=== PATIENT | female | born 1990 | race Caucasian/White ===

== ENCOUNTER 2016-10-21 | Outpatient (CLI) | payer MEDICAID | END 2016-10-21 01:27 | disposition critical access hospital (66) | CPT/HCPCS: A0425; A0429 ==

== ENCOUNTER 2016-10-21 01:57 | Emergency (ER) | payer MEDICAID | END 2016-10-21 02:30 | disposition left against medical advice (07) | DX: Z53.21 Procedure and treatment not carried out due to patient leaving prior to being seen by health care provider (principal) ==

== ENCOUNTER 2016-10-21 03:15 | Emergency (ER) | payer MEDICAID | END 2016-10-21 07:05 | disposition home or self-care (01) | DX: F33.1 Major depressive disorder, recurrent, moderate (principal); F43.10 Post-traumatic stress disorder, unspecified ==

== ENCOUNTER 2016-10-23 21:09 | Emergency (ER) | payer MEDICAID ==
[2016-10-23] MEDS ORDERED: CLINDAMYCIN 150 MG CAPSULE PO STA (21:24)
[2016-10-23] MEDS ORDERED: HYDROcod/ACETAM 5/325 MG TABLET PO STA (21:24)
[2016-10-23] MEDS ORDERED: CLINDAMYCIN 150 MG CAPSULE PO ONE (21:28)
[2016-10-23] MEDS ORDERED: HYDROcod/ACETAM 5/325 MG TABLET ONE (21:28)
== END 2016-10-23 21:34 | disposition home or self-care (01) ==
DX: K08.89 Other specified disorders of teeth and supporting structures (principal)
CPT/HCPCS: 99283; A9270

== ENCOUNTER 2016-10-30 | Outpatient (CLI) | payer MEDICAID | END 2016-10-30 22:52 | disposition critical access hospital (66) | DX: R45.851 Suicidal ideations (principal) | CPT/HCPCS: A0425; A0429 ==

== ENCOUNTER 2016-10-30 22:56 | Emergency (ER) | payer MEDICAID | END 2016-10-31 03:05 | disposition home or self-care (01) | DX: F32.9 Major depressive disorder, single episode, unspecified (principal); R45.87 Impulsiveness; R45.1 Restlessness and agitation ==

== ENCOUNTER 2018-04-01 12:23 | Outpatient (CLI) | payer MEDICAID ==
[2018-04-01 13:23] LABS: BILIRUBIN,URINE NEGATIVE (NEGATIVE); GLUCOSE, URINE (UA) NEGATIVE (NEGATIVE); KETONES,URINE (UA) NEGATIVE (NEGATIVE); LEUKOCYTE ESTERASE, URINE SMALL (NEGATIVE); NITRITE,URINE NEGATIVE (NEGATIVE); OCCULT BLOOD,URINE NEGATIVE (NEGATIVE); PH,URINE 7.5 PH (5.0-7.5); PROTEIN,URINE NEGATIVE (NEGATIVE); UROBILINOGEN,URINE 0.2 (NORMAL) E.U./dL (NORMAL)
[2018-04-01 13:26] LABS: BASOPHILS # (AUTO) 0.1 10^3/uL (0.0-0.1); BASOPHILS % (AUTO) 0.4 %; EOSINOPHILS # (AUTO) 0.3 10^3/uL (0.0-0.7); EOSINOPHILS % (AUTO) 1.9 %; HGB - HEMOGLOBIN 11.1 g/dL (12.0-16.0); LYMPHOCYTES # (AUTO) 2.2 10^3/uL (1.5-3.5); LYMPHOCYTES % (AUTO) 16.1 %; MEAN CORPUSCULAR HEMOGLOBIN 31.1 pg (27.0-31.0); MEAN CORPUSCULAR HGB CONC 33.4 g/dL (32.0-36.0); MEAN PLATELET VOLUME 8.3 fL (7.9-10.8); MONOCYTES # (AUTO) 0.6 10^3/uL (0.0-1.0); MONOCYTES % (AUTO) 4.5 %; NEUTROPHILS # (AUTO) 10.5 10^3/uL (1.5-6.6); NEUTROPHILS % (AUTO) 77.1 %; PLT - PLATELET COUNT 222 10^3/uL (130-450); RED BLOOD COUNT 3.57 10^6/uL (4.20-5.40); WHITE BLOOD COUNT 13.6 x10^3/uL (4.8-10.8)
[2018-04-01 13:34] LABS: BACTERIA,URINE Many /HPF (None Seen); CLARITY,URINE HAZY (CLEAR); RBC,URINE 0-5 /HPF (0-5); SQUAMOUS EPITHELIAL CELL,UR MANY Squamous (<= Few)
[2018-04-01 13:35] LABS: TRICHOMONAS,URINE PRESENT (None Seen); YEAST,URINE PRESENT
[2018-04-03 11:43] LABS: HEPATITIS C ANTIBODY NON-REACTIVE (NON-REACTIVE)
[2018-04-03 11:44] LABS: HEPATITIS B SURFACE ANTIGEN NON-REACTIVE (NON-REACTIVE)
[2018-04-03 15:17] LABS: HIV AG/AB 4TH GEN NON-REACTIVE (NON-REACTIVE)
== END 2018-04-01 12:24 | disposition home or self-care (01) ==
LOC: LAB 12:23
PROVIDERS: ATTEND Nurse Practitioner Obstetrics & Gynecology
DX: Z36.9 Encounter for antenatal screening, unspecified (principal)
CPT/HCPCS: 36415; 81001; 81599; 82105; 82677; 84702; 85025; 86336; 86592; 86762; 86803; 86850; 86900; 86901; 87340; 87389

== ENCOUNTER 2018-09-11 16:20 | Outpatient (CLI) | payer MEDICAID | END 2018-09-11 16:21 | disposition critical access hospital (66) | LOC: EMS 16:20 | PROVIDERS: ATTEND Surgery | DX: R41.82 Altered mental status, unspecified (principal); R46.89 Other symptoms and signs involving appearance and behavior | CPT/HCPCS: A0425; A0429; A0999 ==

== ENCOUNTER 2018-09-11 16:47 | Emergency (ER) | payer MEDICAID ==
[2018-09-11] MEDS ORDERED: LORazepam 2 MG/ML VIAL IM STA (16:51)
--- NOTE | 2018-09-11 16:53 | ED Physician Documentation ---
PD HPI MHE - Stated complaint Stated Complaint: MHE - History obtained from History obtained from: EMS - History of Present Illness Primary symptom: Anxiety (Brought in by ambulance, also detained by Psychiatric's deputy for mental health evaluation. Reportedly she lives with her mom and the mom was under arrest but then was fully arrested and the patient was home alone and became very panicky. Because of active panic attacks she is unable to give much of a history at this juncture.) Review of Systems Unable to obtain: Uncooperative PD PAST MEDICAL HISTORY - Past Surgical History Past Surgical History: No - Present Medications Home Medications: Ambulatory Orders Medication Instructions Recorded Confirmed No Known Home Medications 09/11/18 09/11/18 - Allergies Allergies/Adverse Reactions: Allergies Allergy/AdvReac Type Severity Reaction Status Date / Time divalproex sodium Allergy Unknown Verified 10/30/16 23:03 [From Depakote] sertraline HCl * Allergy Unknown Verified 10/30/16 23:03 [From Zoloft] PD ED PE NORMAL - Vitals Vital signs reviewed: Yes - General General: Other (She is clearly in the midst of a severe panic attack and shaking and hyperventilating.) - HEENT HEENT: PERRL, EOMI - Neck Neck: Supple, no meningeal sign, No bony TTP - Cardiac Cardiac: RRR, No murmur - Respiratory Respiratory: No respiratory distress, Clear bilaterally - Abdomen Abdomen: Soft, Non tender - Neuro Neuro: it technician 2-12 intact Eye Opening: Spontaneous Motor: Obeys Commands Results - Vitals Vitals: Vital Signs - 24 hr 09/11/18 09/11/18 09/11/18 16:47 19:25 21:09 Temperature 36.7 C Heart Rate 129 H 80 99 Respiratory 20 16 16 Rate Blood Pressure 140/102 H 97/61 108/74 O2 Saturation 96 99 100 Oxygen O2 Source Room air - Labs Labs: Laboratory Tests 09/11/18 09/11/18 09/11/18 17:40 17:40 17:51 WBC 7.8 RBC 4.13 L Hgb 12.1 Hct 36.3 L MCV 88.0 MCH 29.2 MCHC 33.2 RDW 13.5 Plt Count 184 MPV 8.0 Neut # (Auto) 5.8 Lymph # (Auto) 1.4 L Hanson # (Auto) 0.5 Eos # (Auto) 0.0 Baso # (Auto) 0.0 Absolute Nucleated RBC 0.00 Nucleated RBC % 0.0 Sodium 137 Potassium 3.7 Chloride 106 Carbon Dioxide 19 L Anion Gap 12.0 BUN 14 Creatinine 0.7 Estimated GFR (MDRD) 101 Glucose 91 Calcium 9.0 Total Bilirubin 1.8 H AST 26 ALT 17 Alkaline Phosphatase 41 L Total Protein 7.3 Albumin 4.5 Globulin 2.8 Albumin/Globulin Ratio 1.6 Lipase 20 L Urine Color Urine Clarity Urine pH Ur Specific [place] Urine Protein Urine Glucose (UA) Urine Ketones Urine Occult Blood Urine Nitrite Urine Bilirubin Urine Urobilinogen Ur Leukocyte Esterase Urine RBC Urine WBC Ur Squamous Epith Cells Urine Bacteria Urine Mucus Ur Microscopic Review Urine Culture Comments Urine HCG, Qual Salicylates < 6.0 Urine Opiates Screen NEGATIVE Ur Oxycodone Screen NEGATIVE Urine Methadone Screen NEGATIVE Ur Propoxyphene Screen NEGATIVE Acetaminophen < 10 L Ur Barbiturates Screen NEGATIVE Ur Tricyclics Screen NEGATIVE Ur Phencyclidine Scrn NEGATIVE Ur Amphetamine Screen NEGATIVE U Methamphetamines Scrn NEGATIVE U Benzodiazepines Scrn NEGATIVE Urine Cocaine Screen NEGATIVE U Cannabinoids Screen POSITIVE H Ethyl Alcohol < 5.0 09/11/18 17:51 WBC RBC Hgb Hct MCV MCH MCHC RDW Plt Count MPV Neut # (Auto) Lymph # (Auto) Hanson # (Auto) Eos # (Auto) Baso # (Auto) Absolute Nucleated RBC Nucleated RBC % Sodium Potassium Chloride Carbon Dioxide Anion Gap BUN Creatinine Estimated GFR (MDRD) Glucose Calcium Total Bilirubin AST ALT Alkaline Phosphatase Total Protein Albumin Globulin Albumin/Globulin Ratio Lipase Urine Color DARK YELLOW Urine Clarity CLEAR Urine pH 6.0 Ur Specific [place] >=1.030 H Urine Protein 30 H Urine Glucose (UA) NEGATIVE Urine Ketones >=80 H Urine Occult Blood SMALL H Urine Nitrite NEGATIVE Urine Bilirubin NEGATIVE Urine Urobilinogen 0.2 (NORMAL) Ur Leukocyte Esterase NEGATIVE Urine RBC 0-5 Urine WBC 0-3 Ur Squamous Epith Cells FEW Squamous Urine Bacteria None Seen Urine Mucus Few Strands Ur Microscopic Review INDICATED Urine Culture Comments NOT INDICATED Urine HCG, Qual NEGATIVE Salicylates Urine Opiates Screen Ur Oxycodone Screen Urine Methadone Screen Ur Propoxyphene Screen Acetaminophen Ur Barbiturates Screen Ur Tricyclics Screen Ur Phencyclidine Scrn Ur Amphetamine Screen U Methamphetamines Scrn U Benzodiazepines Scrn Urine Cocaine Screen U Cannabinoids Screen Ethyl Alcohol PD MEDICAL DECISION MAKING - ED course ED course: 27-year-old woman brought in by EMS accompanied by civil division commander deputy sheriff for mental health evaluation in the midst of a profound panic attack. She was detained by the Psychiatric's deputy for mental health evaluation; the [facility] did see her. She was medicated with Ativan with good relief and she became much more cogent and cooperative. P release her for outpatient treatment which I agree with. They will arrange for next day appointment with her [facility]. Departure - Departure Disposition: 01 Home, Self Care Clinical Impression: Panic attack Condition: Good Record reviewed to determine appropriate education?: Yes Instructions: ED Panic Attack Comments: Follow-up with [facility] at [phone] to schedule psychiatric care and counseling.
[2018-09-11 17:48] LABS: BASOPHILS % (AUTO) 0.5 %; EOSINOPHILS % (AUTO) 0.4 %; HGB - HEMOGLOBIN 12.1 g/dL (12.0-16.0); LYMPHOCYTES # (AUTO) 1.4 10^3/uL (1.5-3.5); LYMPHOCYTES % (AUTO) 18.1 %; MEAN CORPUSCULAR HEMOGLOBIN 29.2 pg (27.0-31.0); MEAN CORPUSCULAR HGB CONC 33.2 g/dL (32.0-36.0); MONOCYTES # (AUTO) 0.5 10^3/uL (0.0-1.0); MONOCYTES % (AUTO) 6.7 %; NEUTROPHILS # (AUTO) 5.8 10^3/uL (1.5-6.6); NEUTROPHILS % (AUTO) 74.3 %; PLT - PLATELET COUNT 184 10^3/uL (130-450); RED BLOOD COUNT 4.13 10^6/uL (4.20-5.40); RED CELL DISTRIBUTION WIDTH 13.5 % (12.0-15.0); WHITE BLOOD COUNT 7.8 x10^3/uL (4.8-10.8)
[2018-09-11 17:59] LABS: GLUCOSE, URINE (UA) NEGATIVE (NEGATIVE); KETONES,URINE (UA) >=80 mg/dL (NEGATIVE); LEUKOCYTE ESTERASE, URINE NEGATIVE (NEGATIVE); MUDS CUTOFF CONCENTRATIONS CUTOFF CONC BELOW:; NITRITE,URINE NEGATIVE (NEGATIVE); OCCULT BLOOD,URINE SMALL (NEGATIVE); PROTEIN,URINE 30 mg/dL (NEGATIVE); UROBILINOGEN,URINE 0.2 (NORMAL) E.U./dL (NORMAL)
[2018-09-11 18:03] LABS: ACETAMINOPHEN < 10 ug/mL (10-30); ALBUMIN 4.5 g/dL (3.2-5.5); ALBUMIN/GLOBULIN RATIO 1.6 (1.0-2.2); ALKALINE PHOSPHATASE 41 IU/L (42-121); ALT ALANINE AMINOTRANSFERASE 17 IU/L (10-60); AST ASPARTATE AMINOTRANSFERASE 26 IU/L (10-42); BILIRUBIN,TOTAL 1.8 mg/dL (0.2-1.0); BUN - BLOOD UREA NITROGEN 14 mg/dL (6-20); CARBON DIOXIDE - CO2 19 mmol/L (21-32); CHLORIDE 106 mmol/L (101-111); CREATININE 0.7 mg/dL (0.4-1.0); GFR - MDRD 101 (>89); GLUCOSE 91 mg/dL (70-100); LIPASE 20 U/L (22-51); SALICYLATE < 6.0 mg/dL; SODIUM 137 mmol/L (135-145); TOTAL PROTEIN 7.3 g/dL (6.7-8.2)
[2018-09-11 18:09] LABS: AMPHETAMINE SCREEN,URINE NEGATIVE (NEGATIVE); BENZODIAZEPINES SCREEN, URINE NEGATIVE (NEGATIVE); COCAINE SCREEN URINE NEGATIVE (NEGATIVE); METHADONE SCREEN, URINE NEGATIVE (NEGATIVE); METHAMPHETAMINES SCREEN, URINE NEGATIVE (NEGATIVE); OPIATE SCREEN, URINE NEGATIVE (NEGATIVE); OXYCODONE SCREEN, URINE NEGATIVE (NEGATIVE); PROPOXYPHENE SCREEN, URINE NEGATIVE (NEGATIVE); TRICYCLIC ANTIDEPRESSANT,URINE NEGATIVE (NEGATIVE)
[2018-09-11 18:10] LABS: BILIRUBIN,URINE NEGATIVE (NEGATIVE); CLARITY,URINE CLEAR (CLEAR); HCG UR QUAL NEGATIVE; ICTOTEST,URINE NEGATIVE
[2018-09-11 18:18] LABS: BACTERIA,URINE None Seen /HPF (None Seen); MUCUS,URINE Few Strands; RBC,URINE 0-5 /HPF (0-5); SQUAMOUS EPITHELIAL CELL,UR FEW Squamous (<= Few)
[2018-09-11 22:19] VITALS: BP 119/71
== END 2018-09-11 23:12 | disposition home or self-care (01) ==
LOC: EDUNIT# → ED 16:47
DX: F41.0 Panic disorder [episodic paroxysmal anxiety] (principal)
CPT/HCPCS: 36415; 80053; 80306; 80307; 80320; 80329; 81001; 81025; 83690; 85025; 96372; 99282; 99283; J2060; 81003; 87086

== ENCOUNTER 2018-09-12 01:12 | Emergency (ER) | payer MEDICAID ==
[2018-09-12] MEDS ORDERED: LORazepam 0.5 MG TABLET PO STA (01:33)
--- NOTE | 2018-09-12 01:42 | ED Physician Documentation ---
PD HPI MHE - Stated complaint Stated Complaint: MHE - History obtained from History obtained from: Patient - History of Present Illness Primary symptom: Anxiety Timing - onset: Today Pain level max: 0 Pain level now: 0 Similar symptoms before: Diagnosis (anxiety) Recently seen: Other (seen here earlier tonight for same) - Additional information Additional information: 27-year-old female with a history of anxiety and PTSD. Seen here earlier [facility] for anxiety. Was evaluated by the [facility] P and set up with a next-day appointment at 1 PM at [facility]. She tried to leave here and speak with her friend Aroldo, but he was not available and his sister called the police. The police brought her back here. She is not on a mental health hold. She denies any suicidal or homicidal ideation she does appear very anxious. 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 - Present Medications Home Medications: Ambulatory Orders Medication Instructions Recorded Confirmed No Known Home Medications 09/11/18 09/11/18 - Allergies Allergies/Adverse Reactions: Allergies Allergy/AdvReac Type Severity Reaction Status Date / Time divalproex sodium Allergy Unknown Verified 10/30/16 23:03 [From Depakote] sertraline HCl * Allergy Unknown Verified 10/30/16 23:03 [From Zoloft] - Social History Does the pt smoke?: Yes Smoking Status: Current every day smoker Does the pt drink ETOH?: No Does the pt have substance abuse?: No - Immunizations Immunizations are current?: No PD ED PE NORMAL - Vitals Vital signs reviewed: Yes - General General: Alert and oriented X 3, Other (Thin female, very anxious and tearful) - HEENT HEENT: PERRL, Moist mucous membranes - Neck Neck: Supple, no meningeal sign - Cardiac Cardiac: RRR, Strong equal pulses - Respiratory Respiratory: No respiratory distress, Clear bilaterally - Abdomen Abdomen: Soft, Non tender, Non distended - Derm Derm: Warm and dry - Extremities Extremities: No edema - Neuro Neuro: Alert and oriented X 3 - Psych Psych: Other (Tearful and anxious) Results - Vitals Vitals: Vital Signs - 24 hr 09/12/18 01:15 Temperature 36.8 C Heart Rate 77 Respiratory 16 Rate Blood Pressure 122/70 O2 Saturation 99 Oxygen O2 Source Room air PD MEDICAL DECISION MAKING - ED course Complexity details: reviewed old records, considered differential, d/w patient ED course: 27-year-old female with what appears to be a panic attack. She feels better after Ativan. She does not have anywhere to go tonight, therefore was allowed to sleep in the emergency department and will be discharged in the morning to her appointment with [facility] at 1 PM. Patient counseled regarding signs and symptoms for which I believe and urgent re-evaluation would be necessary. Patient with good understanding of and agreement to plan and is comfortable going home at this time This document was made in part using voice recognition software. While efforts are made to proofread this document, sound alike and grammatical errors may occur. Departure - Departure Disposition: 01 Home, Self Care Clinical Impression: Panic attack, Post traumatic stress disorder (PTSD) Condition: Stable Instructions: ED Panic Attack Follow-Up: [facility] Christal Munguia [Provider Group] Comments: Follow up with [facility] at 1pm for your appointment today with Charmaine. Return if you worsen.
[2018-09-12 02:26] VITALS: BP 122/70
== END 2018-09-12 10:25 | disposition home or self-care (01) ==
LOC: EDUNIT# → ED 01:12
DX: F41.0 Panic disorder [episodic paroxysmal anxiety] (principal); F43.10 Post-traumatic stress disorder, unspecified; F17.200 Nicotine dependence, unspecified, uncomplicated
CPT/HCPCS: 99283

== ENCOUNTER 2018-09-12 19:26 | Outpatient (CLI) | payer MEDICAID | END 2018-09-12 19:27 | disposition critical access hospital (66) | LOC: EMS 19:26 | PROVIDERS: ATTEND Surgery | DX: R46.89 Other symptoms and signs involving appearance and behavior (principal) | CPT/HCPCS: A0425; A0429; A0999 ==

== ENCOUNTER 2018-09-12 19:45 | Emergency (ER) | payer MEDICAID ==
[2018-09-12] MEDS ORDERED: LORazepam 2 MG/ML VIAL IM STA (19:55)
--- NOTE | 2018-09-12 19:58 | ED Physician Documentation ---
<SangitaMadeline andres M - Last Filed: 09/13/18 17:30> PD HPI MHE - Stated complaint Stated Complaint: MHE - History obtained from History obtained from: Patient, EMS - History of Present Illness Primary symptom: Anxiety (She was seen last night for severe anxiety. Cleared and released by the [facility] P. But then came right back. She gets more Ativan. Went home this morning and went to counseling but then wandered the streets all day not really wanting to go home. She returns with a severe anxiety attack. 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 - Present Medications Home Medications: Ambulatory Orders Medication Instructions Recorded Confirmed Lorazepam [Ativan] 1 mg PO Q6HR PRN #12 tablet 09/14/18 - Allergies Allergies/Adverse Reactions: Allergies Allergy/AdvReac Type Severity Reaction Status Date / Time divalproex sodium Allergy Unknown Verified 09/12/18 20:03 [From Depakote] sertraline HCl * Allergy Unknown Verified 09/12/18 20:03 [From Zoloft] - Social History Does the pt smoke?: Yes Smoking Status: Current every day smoker Does the pt drink ETOH?: No Does the pt have substance abuse?: No - Immunizations Immunizations are current?: No PD ED PE NORMAL - Vitals Vital signs reviewed: Yes - General General: Other (She is writhing and crying. She is worried about [place].) - HEENT HEENT: PERRL, EOMI - Neck Neck: Supple, no meningeal sign, No bony TTP - Cardiac Cardiac: RRR, No murmur - Respiratory Respiratory: No respiratory distress, Clear bilaterally - Abdomen Abdomen: Soft, Non tender - Back Back: No CVA TTP, No spinal TTP - Derm Derm: Normal color, Warm and dry - Extremities Extremities: No edema, No calf tenderness / cord - Neuro Neuro: Alert and oriented X 3, Normal speech Results - Vitals Vitals: Vital Signs - 24 hr 09/14/18 09/14/18 07:37 12:35 Temperature 36.2 C L Heart Rate 84 80 Respiratory 16 16 Rate Blood Pressure 105/63 122/76 O2 Saturation 100 99 Oxygen O2 Source Room air - Labs Labs: Laboratory Tests 09/12/18 09/12/18 09/12/18 20:55 20:55 21:45 WBC 7.7 RBC 3.81 L Hgb 11.3 L Hct 32.9 L MCV 86.4 MCH 29.7 MCHC 34.3 RDW 13.4 Plt Count 189 MPV 8.0 Neut # (Auto) 5.3 Lymph # (Auto) 1.7 Miller # (Auto) 0.5 Eos # (Auto) 0.1 Baso # (Auto) 0.0 Absolute Nucleated RBC 0.00 Nucleated RBC % 0.0 Sodium 135 Potassium 3.2 L Chloride 106 Carbon Dioxide 20 L Anion Gap 9.0 BUN 8 Creatinine 0.6 Estimated GFR (MDRD) 121 Glucose 137 H Calcium 9.0 Total Bilirubin 1.8 H AST 26 ALT 17 Alkaline Phosphatase 38 L Total Creatine Kinase 285 H Total Protein 7.2 Albumin 4.4 Globulin 2.8 Albumin/Globulin Ratio 1.6 Lipase 63 H Urine Color BROWN Urine Clarity CLEAR Urine pH 6.0 Ur Specific [place] >=1.030 H Urine Protein 30 H Urine Glucose (UA) NEGATIVE Urine Ketones >=80 H Urine Occult Blood TRACE-LYSE Urine Nitrite NEGATIVE Urine Bilirubin MODERATE H Urine Urobilinogen 0.2 (NORMAL) Ur Leukocyte Esterase TRACE H Urine RBC 0-5 Urine WBC 4-5 Ur Squamous Epith Cells MANY Squamous H Urine Bacteria Many H Urine Mucus Few Strands Ur Microscopic Review INDICATED Urine Culture Comments NOT INDICATED Urine HCG, Qual NEGATIVE Urine Opiates Screen NEGATIVE Ur Oxycodone Screen NEGATIVE Urine Methadone Screen NEGATIVE Ur Propoxyphene Screen NEGATIVE Ur Barbiturates Screen NEGATIVE Ur Tricyclics Screen NEGATIVE Ur Phencyclidine Scrn NEGATIVE Ur Amphetamine Screen NEGATIVE U Methamphetamines Scrn NEGATIVE U Benzodiazepines Scrn POSITIVE H Urine Cocaine Screen NEGATIVE U Cannabinoids Screen POSITIVE H Ethyl Alcohol < 5.0 PD MEDICAL DECISION MAKING - ED course ED course: 27-year-old woman who is having severe and profound anxiety with some psychotic features. She was evaluated by the P but this was after medication and they felt she was stable for voluntary treatment. At that time she requested hospitalization but she vacillated back and forth frequently on whether or not she wanted to be hospitalized. She was seen extensively by the social workers throughout the day on 13 September. They felt she was not safe to be discharged and tried to re-dispatch the [facility], however they will not re-dispatched until 730 tonight. She required multiple episodes of security involvement and police involvement to keep her distracted in the room. I did not want to re-medicate her too much because we needed the [facility] to see her as profoundly and gravely disabled as she was. Departure - Departure Disposition: Against Medical Advice Clinical Impression: Post traumatic stress disorder (PTSD) Instructions: ED Stress React, ED Panic Attack Follow-Up: [facility] [Provider Group] Prescriptions: Lorazepam [Ativan] 1 mg PO Q6HR PRN #12 tablet PRN Reason: Anxiety Discharge Date/Time: 09/14/18 13:01 <Finesse Momin - Last Filed: 09/14/18 18:04> Results - Vitals Vitals: Vital Signs - 24 hr 09/14/18 09/14/18 07:37 12:35 Temperature 36.2 C L Heart Rate 84 80 Respiratory 16 16 Rate Blood Pressure 105/63 122/76 O2 Saturation 100 99 Oxygen O2 Source Room air - Labs Labs: Laboratory Tests 09/12/18 09/12/18 09/12/18 20:55 20:55 21:45 WBC 7.7 RBC 3.81 L Hgb 11.3 L Hct 32.9 L MCV 86.4 MCH 29.7 MCHC 34.3 RDW 13.4 Plt Count 189 MPV 8.0 Neut # (Auto) 5.3 Lymph # (Auto) 1.7 Miller # (Auto) 0.5 Eos # (Auto) 0.1 Baso # (Auto) 0.0 Absolute Nucleated RBC 0.00 Nucleated RBC % 0.0 Sodium 135 Potassium 3.2 L Chloride 106 Carbon Dioxide 20 L Anion Gap 9.0 BUN 8 Creatinine 0.6 Estimated GFR (MDRD) 121 Glucose 137 H Calcium 9.0 Total Bilirubin 1.8 H AST 26 ALT 17 Alkaline Phosphatase 38 L Total Creatine Kinase 285 H Total Protein 7.2 Albumin 4.4 Globulin 2.8 Albumin/Globulin Ratio 1.6 Lipase 63 H Urine Color BROWN Urine Clarity CLEAR Urine pH 6.0 Ur Specific [place] >=1.030 H Urine Protein 30 H Urine Glucose (UA) NEGATIVE Urine Ketones >=80 H Urine Occult Blood TRACE-LYSE Urine Nitrite NEGATIVE Urine Bilirubin MODERATE H Urine Urobilinogen 0.2 (NORMAL) Ur Leukocyte Esterase TRACE H Urine RBC 0-5 Urine WBC 4-5 Ur Squamous Epith Cells MANY Squamous H Urine Bacteria Many H Urine Mucus Few Strands Ur Microscopic Review INDICATED Urine Culture Comments NOT INDICATED Urine HCG, Qual NEGATIVE Urine Opiates Screen NEGATIVE Ur Oxycodone Screen NEGATIVE Urine Methadone Screen NEGATIVE Ur Propoxyphene Screen NEGATIVE Ur Barbiturates Screen NEGATIVE Ur Tricyclics Screen NEGATIVE Ur Phencyclidine Scrn NEGATIVE Ur Amphetamine Screen NEGATIVE U Methamphetamines Scrn NEGATIVE U Benzodiazepines Scrn POSITIVE H Urine Cocaine Screen NEGATIVE U Cannabinoids Screen POSITIVE H Ethyl Alcohol < 5.0 PD MEDICAL DECISION MAKING - ED course ED course: 27-year-old woman who is having severe and profound anxiety with some psychotic features. She was evaluated by the [facility] but this was after medication and they felt she was stable for voluntary treatment. At that time she requested hos pitalization but she vacillated back and forth frequently on whether or not she wanted to be hospitalized. She was seen extensively by the social workers throughout the day on 13 September. They felt she was not safe to be discharged and tried to re-dispatch the [facility], however they will not re-dispatched until 730 tonight. She required multiple episodes of security involvement and police involvement to keep her distracted in the room. I did not want to re-medicate her too much because we needed the [facility] to see her as profoundly and gravely disabled as she was. The patient was kept in the ED for 40 + hours and a voluntary bed has not become available. The patient challenged and wanted to go home. The DCR has done a walk away and the social problems specialist was unable to detain the patient. The patient is cooperative and takes her time to check out of the ED against medical advise. She has benefited from use of ativan in the ED and she has an appointment for an intake at [facility] in 2 days time. She indicates she has a place to stay but not a way to get there. I encouraged the patient to follow up and provided her with a script for ativan 1mg #15. I indicated to her the benefit of staying here was to get stabilizing medical treatment as an inpatient at a psych facility and the risk of leaving being worsening of symptoms and decompensation. A bed is not available today, she is not "in line" for a bed, and she elected to leave the ED after being reassured that evaluation and treatment here is available 24 hours.
[2018-09-12 21:00] LABS: BASOPHILS % (AUTO) 0.5 %; EOSINOPHILS # (AUTO) 0.1 10^3/uL (0.0-0.7); EOSINOPHILS % (AUTO) 1.5 %; HGB - HEMOGLOBIN 11.3 g/dL (12.0-16.0); LYMPHOCYTES # (AUTO) 1.7 10^3/uL (1.5-3.5); LYMPHOCYTES % (AUTO) 21.9 %; MEAN CORPUSCULAR HEMOGLOBIN 29.7 pg (27.0-31.0); MEAN CORPUSCULAR HGB CONC 34.3 g/dL (32.0-36.0); MEAN CORPUSCULAR VOLUME 86.4 fL (81.0-99.0); MONOCYTES # (AUTO) 0.5 10^3/uL (0.0-1.0); MONOCYTES % (AUTO) 6.8 %; NEUTROPHILS # (AUTO) 5.3 10^3/uL (1.5-6.6); NEUTROPHILS % (AUTO) 69.3 %; PLT - PLATELET COUNT 189 10^3/uL (130-450); RED BLOOD COUNT 3.81 10^6/uL (4.20-5.40); RED CELL DISTRIBUTION WIDTH 13.4 % (12.0-15.0); WHITE BLOOD COUNT 7.7 x10^3/uL (4.8-10.8)
[2018-09-12 21:14] LABS: ALBUMIN 4.4 g/dL (3.2-5.5); ALBUMIN/GLOBULIN RATIO 1.6 (1.0-2.2); ALKALINE PHOSPHATASE 38 IU/L (42-121); ALT ALANINE AMINOTRANSFERASE 17 IU/L (10-60); AST ASPARTATE AMINOTRANSFERASE 26 IU/L (10-42); BILIRUBIN,TOTAL 1.8 mg/dL (0.2-1.0); BUN - BLOOD UREA NITROGEN 8 mg/dL (6-20); CARBON DIOXIDE - CO2 20 mmol/L (21-32); CHLORIDE 106 mmol/L (101-111); CK- CREATINE KINASE 285 IU/L (22-269); CREATININE 0.6 mg/dL (0.4-1.0); GFR - MDRD 121 (>89); GLUCOSE 137 mg/dL (70-100); LIPASE 63 U/L (22-51); SODIUM 135 mmol/L (135-145); TOTAL PROTEIN 7.2 g/dL (6.7-8.2)
[2018-09-12] MEDS ORDERED: POTASSIUM CHLORIDE 20 MEQ TABLET PO STA (21:20)
[2018-09-12 21:54] LABS: MUDS CUTOFF CONCENTRATIONS CUTOFF CONC BELOW:
[2018-09-12 22:02] LABS: GLUCOSE, URINE (UA) NEGATIVE (NEGATIVE); KETONES,URINE (UA) >=80 mg/dL (NEGATIVE); LEUKOCYTE ESTERASE, URINE TRACE (NEGATIVE); NITRITE,URINE NEGATIVE (NEGATIVE); OCCULT BLOOD,URINE TRACE-LYSE (NEGATIVE); PROTEIN,URINE 30 mg/dL (NEGATIVE); UROBILINOGEN,URINE 0.2 (NORMAL) E.U./dL (NORMAL)
[2018-09-12 22:11] LABS: BILIRUBIN,URINE MODERATE (NEGATIVE); CLARITY,URINE CLEAR (CLEAR); HCG UR QUAL NEGATIVE; ICTOTEST,URINE POSITIVE
[2018-09-12 22:12] LABS: AMPHETAMINE SCREEN,URINE NEGATIVE (NEGATIVE); BENZODIAZEPINES SCREEN, URINE POSITIVE (NEGATIVE); COCAINE SCREEN URINE NEGATIVE (NEGATIVE); METHADONE SCREEN, URINE NEGATIVE (NEGATIVE); METHAMPHETAMINES SCREEN, URINE NEGATIVE (NEGATIVE); OPIATE SCREEN, URINE NEGATIVE (NEGATIVE); OXYCODONE SCREEN, URINE NEGATIVE (NEGATIVE); PROPOXYPHENE SCREEN, URINE NEGATIVE (NEGATIVE); TRICYCLIC ANTIDEPRESSANT,URINE NEGATIVE (NEGATIVE)
[2018-09-12 22:21] LABS: BACTERIA,URINE Many /HPF (None Seen); MUCUS,URINE Few Strands; RBC,URINE 0-5 /HPF (0-5); SQUAMOUS EPITHELIAL CELL,UR MANY Squamous (<= Few)
[2018-09-14] MEDS ORDERED: LORazepam 2 MG/ML VIAL IM STA (04:35)
--- NOTE | 2018-09-14 08:42 | ED Physician Documentation ---
ED Addendum - Addendum Addendum: 09/14/18 08:40 Received sign out from Dr. Quesada at end of his shift (11 PM 09/13/18). Patient had SW consult afternoon of 09/13, and SW note reflects patient is having paranoid delusions, is gravely disabled, and "unable to make decisions on her own behalf". Recommendation was to reconsult [facility] for placement. P was consulted and evaluated patient in ED. [facility] was only able to find a single available bed, and the accepting facility's staff expressed reservations regarding abnormal blood tests and ultimately declined this patient for this reason. I signed out the case to the oncoming ED MD at end of my shift 7 AM 09/14/[address] Momin. Patient rested quietly for the first several hours of my shift, but she suddenly became very agitated, loud, and uncooperative at approximately 4:30 AM. She was standing in the hallway outside of another patient's room, repeatedly yelling that she was being raped. This behavior continued despite attempts by staff to deescalate the situation, eventually requiring IM ativan. Within 20-30 minutes of receiving the ativan she fell asleep in her room.
[2018-09-14 13:03] VITALS: BP 122/76
== END 2018-09-14 13:01 | disposition left against medical advice (07) ==
LOC: EDUNIT# → ED 19:45
DX: F41.0 Panic disorder [episodic paroxysmal anxiety] (principal); F22 Delusional disorders; R45.1 Restlessness and agitation; F43.10 Post-traumatic stress disorder, unspecified; F17.200 Nicotine dependence, unspecified, uncomplicated; F79 Unspecified intellectual disabilities
CPT/HCPCS: 36415; 80053; 80306; 80320; 81001; 81025; 82550; 83690; 85025; 96372; 99283; 99284; A9270; J2060; 81003; 87086

== ENCOUNTER 2018-09-19 16:37 | Emergency (ER) | payer MEDICAID | END 2018-09-19 17:21 | disposition left against medical advice (07) | LOC: ED 16:37 | DX: Z53.21 Procedure and treatment not carried out due to patient leaving prior to being seen by health care provider (principal) ==

== ENCOUNTER 2018-09-21 13:40 | Emergency (ER) | payer MEDICAID ==
[2018-09-21] MEDS ORDERED: LORazepam 0.5 MG TABLET PO STA (13:54)
--- NOTE | 2018-09-21 13:57 | ED Physician Documentation ---
History of Present Illness - Stated complaint Stated Complaint: MED REFILL - History obtained from History obtained from: Patient, Family - History of Present Illness Timing: Today - Additonal information Additional information: 27 y/o female acutely decompensated has had some improvement with the use of ativan while she awaits evaluation at [facility]. 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 - Present Medications Home Medications: Ambulatory Orders Medication Instructions Recorded Confirmed Lorazepam [Ativan] 1 mg PO Q6HR PRN #12 tablet 09/14/18 Lorazepam [Ativan] 1 mg PO Q6HR #14 tablet 09/21/18 - Allergies Allergies/Adverse Reactions: Allergies Allergy/AdvReac Type Severity Reaction Status Date / Time divalproex sodium Allergy Unknown Verified 09/12/18 20:03 [From Depakote] sertraline HCl * Allergy Unknown Verified 09/12/18 20:03 [From Zoloft] - Social History Does the pt smoke?: Yes Smoking Status: Current every day smoker Does the pt drink ETOH?: No Does the pt have substance abuse?: No - Immunizations Immunizations are current?: No PD ED PE NORMAL - Vitals Vital signs reviewed: Yes (tachy and hypertensive) - General General: Well developed/nourished, Other (withdrawn and accompanied by family does not want to be touched. ) - HEENT HEENT: Atraumatic, PERRL, EOMI - Respiratory Respiratory: No respiratory distress - Derm Derm: Normal color, Warm and dry, No rash - Extremities Extremities: No deformity, No edema - Neuro Neuro: Alert and oriented X 3, stator connector 2-12 intact, No motor deficit, No sensory deficit, Normal speech Eye Opening: Spontaneous Motor: Obeys Commands Verbal: Oriented GCS Score: 15 - Psych Psych: Other (mood is withdrawn and the affect is labile ) Results - Vitals Vitals: Vital Signs - 24 hr 09/21/18 13:47 Temperature 37.2 C Heart Rate 108 H Respiratory 20 Rate Blood Pressure 135/94 H O2 Saturation 100 Oxygen O2 Source Room air PD MEDICAL DECISION MAKING - ED course Complexity details: reviewed old records, considered differential, d/w patient, d/w family ED course: 27 y/o female with decompensated psychosis has an appointment for intake in 3 days time. She is requesting medication to last until then. She is prescribed another 15 ativan. Departure - Departure Disposition: 01 Home, Self Care Clinical Impression: Post traumatic stress disorder (PTSD) Condition: Stable Instructions: ED Stress React Follow-Up: Jess Byrnes ARNP [Primary Care Provider] - Prescriptions: Lorazepam [Ativan] 1 mg PO Q6HR #14 tablet
[2018-09-21 13:58] VITALS: BP 135/94
== END 2018-09-21 14:29 | disposition home or self-care (01) ==
LOC: ED 13:40
DX: F43.10 Post-traumatic stress disorder, unspecified (principal); F17.200 Nicotine dependence, unspecified, uncomplicated
CPT/HCPCS: 99283; A9270

== ENCOUNTER 2018-09-24 13:24 | Emergency (ER) | payer MEDICAID ==
[2018-09-24] MEDS ORDERED: LORazepam 0.5 MG TABLET PO STA ×2 (13:45→14:31)
[2018-09-24] MEDS ORDERED: OLANZapine ODT 5 MG TABLET TL STA (13:45)
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
[2018-09-24] MEDS ORDERED: OLANZapine ODT 5 MG TABLET TL ONE (14:31)
[2018-09-24 14:41] LABS: BASOPHILS % (AUTO) 0.7 %; EOSINOPHILS % (AUTO) 0.6 %; HGB - HEMOGLOBIN 12.1 g/dL (12.0-16.0); LYMPHOCYTES # (AUTO) 1.8 10^3/uL (1.5-3.5); LYMPHOCYTES % (AUTO) 26.4 %; MEAN CORPUSCULAR HGB CONC 34.7 g/dL (32.0-36.0); MEAN CORPUSCULAR VOLUME 86.5 fL (81.0-99.0); MEAN PLATELET VOLUME 8.1 fL (7.9-10.8); MONOCYTES # (AUTO) 0.4 10^3/uL (0.0-1.0); MONOCYTES % (AUTO) 5.5 %; NEUTROPHILS # (AUTO) 4.5 10^3/uL (1.5-6.6); NEUTROPHILS % (AUTO) 66.8 %; PLT - PLATELET COUNT 206 10^3/uL (130-450); RED BLOOD COUNT 4.03 10^6/uL (4.20-5.40); RED CELL DISTRIBUTION WIDTH 13.9 % (12.0-15.0); WHITE BLOOD COUNT 6.7 x10^3/uL (4.8-10.8)
[2018-09-24] MEDS ORDERED: LORazepam 0.5 MG TABLET ONE (14:41)
[2018-09-24 14:57] LABS: ACETAMINOPHEN < 10 ug/mL (10-30); ALBUMIN 4.2 g/dL (3.2-5.5); ALBUMIN/GLOBULIN RATIO 1.8 (1.0-2.2); ALKALINE PHOSPHATASE 31 IU/L (42-121); ALT ALANINE AMINOTRANSFERASE 16 IU/L (10-60); AST ASPARTATE AMINOTRANSFERASE 21 IU/L (10-42); BUN - BLOOD UREA NITROGEN 6 mg/dL (6-20); CALCIUM 9.1 mg/dL (8.5-10.3); CARBON DIOXIDE - CO2 24 mmol/L (21-32); CHLORIDE 107 mmol/L (101-111); CREATININE 0.6 mg/dL (0.4-1.0); GFR - MDRD 121 (>89); GLUCOSE 115 mg/dL (70-100); LIPASE 27 U/L (22-51); SALICYLATE < 6.0 mg/dL; SODIUM 138 mmol/L (135-145); TOTAL PROTEIN 6.6 g/dL (6.7-8.2)
[2018-09-24 15:45] LABS: MUDS CUTOFF CONCENTRATIONS CUTOFF CONC BELOW:
[2018-09-24 15:49] LABS: BILIRUBIN,URINE NEGATIVE (NEGATIVE); GLUCOSE, URINE (UA) NEGATIVE (NEGATIVE); KETONES,URINE (UA) 15 mg/dL (NEGATIVE); LEUKOCYTE ESTERASE, URINE TRACE (NEGATIVE); NITRITE,URINE NEGATIVE (NEGATIVE); OCCULT BLOOD,URINE NEGATIVE (NEGATIVE); PROTEIN,URINE NEGATIVE (NEGATIVE); UROBILINOGEN,URINE 0.2 (NORMAL) E.U./dL (NORMAL)
[2018-09-24 15:52] LABS: CLARITY,URINE CLOUDY (CLEAR); HCG UR QUAL NEGATIVE
[2018-09-24 15:58] LABS: AMPHETAMINE SCREEN,URINE NEGATIVE (NEGATIVE); BENZODIAZEPINES SCREEN, URINE POSITIVE (NEGATIVE); COCAINE SCREEN URINE NEGATIVE (NEGATIVE); METHADONE SCREEN, URINE NEGATIVE (NEGATIVE); METHAMPHETAMINES SCREEN, URINE NEGATIVE (NEGATIVE); OPIATE SCREEN, URINE NEGATIVE (NEGATIVE); OXYCODONE SCREEN, URINE NEGATIVE (NEGATIVE); TRICYCLIC ANTIDEPRESSANT,URINE NEGATIVE (NEGATIVE)
[2018-09-24 15:59] LABS: PROPOXYPHENE SCREEN, URINE NEGATIVE (NEGATIVE)
[2018-09-24 16:00] LABS: BACTERIA,URINE Few /HPF (None Seen); RBC,URINE 0-5 /HPF (0-5); SQUAMOUS EPITHELIAL CELL,UR FEW Squamous (<= Few)
[2018-09-24] MEDS ORDERED: NITROFURANTOIN MACRO 100 MG CAPSULE PO STA (18:11)
[2018-09-25 06:24] VITALS: BP 113/63
--- NOTE | 2018-09-25 08:34 | ED Physician Documentation ---
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 - Present Medications Home Medications: Ambulatory Orders Medication Instructions Recorded Confirmed Lorazepam [Ativan] 1 mg PO Q6HR PRN #12 tablet 09/14/18 Lorazepam [Ativan] 1 mg PO Q6HR #14 tablet 09/21/18 - Allergies Allergies/Adverse Reactions: Allergies Allergy/AdvReac Type Severity Reaction Status Date / Time divalproex sodium Allergy Unknown Verified 09/12/18 20:03 [From Depakote] sertraline HCl * Allergy Unknown Verified 09/12/18 20:03 [From Zoloft] - Social History Does the pt smoke?: Yes Smoking Status: Current every day smoker Does the pt drink ETOH?: No Does the pt have substance abuse?: No - Immunizations Immunizations are current?: No Results - Vitals Vitals: Vital Signs - 24 hr 09/24/18 09/24/18 09/24/18 14:28 14:43 20:44 Temperature 36.7 C 36.3 C L Heart Rate 78 81 Respiratory 14 16 Rate Blood Pressure 120/80 102/54 L O2 Saturation 100 98 09/24/18 09/25/18 23:51 06:23 Temperature Heart Rate 68 Respiratory 15 16 Rate Blood Pressure 113/63 O2 Saturation 100 Oxygen O2 Source Room air - Labs Labs: Laboratory Tests 09/24/18 09/24/18 09/24/18 14:35 14:35 14:35 WBC 6.7 RBC 4.03 L Hgb 12.1 Hct 34.8 L MCV 86.5 MCH 30.0 MCHC 34.7 RDW 13.9 Plt Count 206 MPV 8.1 Neut # (Auto) 4.5 Lymph # (Auto) 1.8 [place] # (Auto) 0.4 Eos # (Auto) 0.0 Baso # (Auto) 0.0 Absolute Nucleated RBC 0.00 Nucleated RBC % 0.0 Sodium 138 Potassium 3.5 Chloride 107 Carbon Dioxide 24 Anion Gap 7.0 BUN 6 Creatinine 0.6 Estimated GFR (MDRD) 121 Glucose 115 H Calcium 9.1 Total Bilirubin 1.0 AST 21 ALT 16 Alkaline Phosphatase 31 L Total Protein 6.6 L Albumin 4.2 Globulin 2.4 Albumin/Globulin Ratio 1.8 Lipase 27 TSH 0.58 Urine Color Urine Clarity Urine pH Ur Specific [place] Urine Protein Urine Glucose (UA) Urine Ketones Urine Occult Blood Urine Nitrite Urine Bilirubin Urine Urobilinogen Ur Leukocyte Esterase Urine RBC Urine WBC Ur Squamous Epith Cells Urine Bacteria Ur Microscopic Review Urine Culture Comments Urine HCG, Qual Salicylates < 6.0 Urine Opiates Screen Ur Oxycodone Screen Urine Methadone Screen Ur Propoxyphene Screen Acetaminophen < 10 L Ur Barbiturates Screen Ur Tricyclics Screen Ur Phencyclidine Scrn Ur Amphetamine Screen U Methamphetamines Scrn U Benzodiazepines Scrn Urine Cocaine Screen U Cannabinoids Screen Ethyl Alcohol < 5.0 09/24/18 09/24/18 15:40 15:40 WBC RBC Hgb Hct MCV MCH MCHC RDW Plt Count MPV Neut # (Auto) Lymph # (Auto) [place] # (Auto) Eos # (Auto) Baso # (Auto) Absolute Nucleated RBC Nucleated RBC % Sodium Potassium Chloride Carbon Dioxide Anion Gap BUN Creatinine Estimated GFR (MDRD) Glucose Calcium Total Bilirubin AST ALT Alkaline Phosphatase Total Protein Albumin Globulin Albumin/Globulin Ratio Lipase TSH Urine Color YELLOW Urine Clarity CLOUDY Urine pH 7.0 Ur Specific [place] 1.015 Urine Protein NEGATIVE Urine Glucose (UA) NEGATIVE Urine Ketones 15 H Urine Occult Blood NEGATIVE Urine Nitrite NEGATIVE Urine Bilirubin NEGATIVE Urine Urobilinogen 0.2 (NORMAL) Ur Leukocyte Esterase TRACE H Urine RBC 0-5 Urine WBC 4-5 Ur Squamous Epith Cells FEW Squamous Urine Bacteria Few Ur Microscopic Review INDICATED Urine Culture Comments INDICATED Urine HCG, Qual NEGATIVE Salicylates Urine Opiates Screen NEGATIVE Ur Oxycodone Screen NEGATIVE Urine Methadone Screen NEGATIVE Ur Propoxyphene Screen NEGATIVE Acetaminophen Ur Barbiturates Screen NEGATIVE Ur Tricyclics Screen NEGATIVE Ur Phencyclidine Scrn NEGATIVE Ur Amphetamine Screen NEGATIVE U Methamphetamines Scrn NEGATIVE U Benzodiazepines Scrn POSITIVE H Urine Cocaine Screen NEGATIVE U Cannabinoids Screen POSITIVE H Ethyl Alcohol Departure - Departure Disposition: 01 Home, Self Care Clinical Impression: Anxiety, Post traumatic stress disorder (PTSD) Condition: Stable Instructions: ED Stress React Follow-Up: Jess Byrnes ARNP [Primary Care Provider] - Comments: Follow-up at [facility] this morning as discussed with the medical economics consultant. Return to the emergency department if recurrent or worsening symptoms.
== END 2018-09-25 08:30 | disposition home or self-care (01) ==
LOC: ED 13:24
DX: F41.9 Anxiety disorder, unspecified (principal); F43.10 Post-traumatic stress disorder, unspecified; N39.0 Urinary tract infection, site not specified; F17.200 Nicotine dependence, unspecified, uncomplicated
CPT/HCPCS: 36415; 80053; 80306; 80307; 80320; 80329; 81001; 81025; 83690; 84443; 85025; 87077; 87086; 87181; 99284; A9270; 81003

== ENCOUNTER 2018-10-01 09:26 | Outpatient (CLI) | payer MEDICAID | END 2018-10-01 09:27 | disposition EMS.NT | LOC: EMS 09:26 | PROVIDERS: ATTEND Surgery | DX: R45.89 Other symptoms and signs involving emotional state (principal) ==

== ENCOUNTER 2018-10-01 10:45 | Emergency (ER) | payer MEDICAID ==
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
[2018-10-01] MEDS ORDERED: LORazepam 0.5 MG TABLET PO STA ×2 (11:53→21:27)
[2018-10-01] MEDS ORDERED: OLANZapine ODT 5 MG TABLET TL ONE (11:53)
[2018-10-01] MEDS ORDERED: OLANZapine 10 MG VIAL IM STA ×2 (11:56→17:45)
[2018-10-01] MEDS ORDERED: LORazepam 2 MG/ML VIAL IVP STA (11:56)
[2018-10-01] MEDS ORDERED: LORazepam 2 MG/ML VIAL ONE (12:00)
[2018-10-01] MEDS ORDERED: OLANZapine 10 MG VIAL IM ONE (12:00)
[2018-10-01] MEDS ORDERED: WATER FOR INJECTION,STERILE 10 ML ONE (12:01)
[2018-10-01 12:58] LABS: BASOPHILS % (AUTO) 0.4 %; EOSINOPHILS % (AUTO) 0.4 %; HGB - HEMOGLOBIN 12.2 g/dL (12.0-16.0); LYMPHOCYTES # (AUTO) 1.2 10^3/uL (1.5-3.5); MEAN CORPUSCULAR HEMOGLOBIN 30.3 pg (27.0-31.0); MEAN CORPUSCULAR HGB CONC 34.2 g/dL (32.0-36.0); MEAN CORPUSCULAR VOLUME 88.5 fL (81.0-99.0); MEAN PLATELET VOLUME 7.9 fL (7.9-10.8); MONOCYTES # (AUTO) 0.4 10^3/uL (0.0-1.0); MONOCYTES % (AUTO) 5.7 %; NEUTROPHILS # (AUTO) 5.2 10^3/uL (1.5-6.6); NEUTROPHILS % (AUTO) 75.5 %; PLT - PLATELET COUNT 175 10^3/uL (130-450); RED BLOOD COUNT 4.04 10^6/uL (4.20-5.40); RED CELL DISTRIBUTION WIDTH 14.6 % (12.0-15.0); WHITE BLOOD COUNT 6.9 x10^3/uL (4.8-10.8)
[2018-10-01 13:14] LABS: ACETAMINOPHEN < 10 ug/mL (10-30); ALBUMIN/GLOBULIN RATIO 1.6 (1.0-2.2); ALKALINE PHOSPHATASE 29 IU/L (42-121); ALT ALANINE AMINOTRANSFERASE 17 IU/L (10-60); AST ASPARTATE AMINOTRANSFERASE 20 IU/L (10-42); BILIRUBIN,TOTAL 0.6 mg/dL (0.2-1.0); BUN - BLOOD UREA NITROGEN 11 mg/dL (6-20); CALCIUM 8.9 mg/dL (8.5-10.3); CARBON DIOXIDE - CO2 25 mmol/L (21-32); CHLORIDE 108 mmol/L (101-111); CREATININE 0.5 mg/dL (0.4-1.0); GFR - MDRD 149 (>89); GLUCOSE 94 mg/dL (70-100); LIPASE 34 U/L (22-51); SALICYLATE < 6.0 mg/dL; SODIUM 139 mmol/L (135-145); TOTAL PROTEIN 6.5 g/dL (6.7-8.2)
[2018-10-01 13:32] LABS: HCG,QUALITATIVE BLOOD NEGATIVE
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
[2018-10-01] MEDS ORDERED: LORazepam 2 MG/ML VIAL IM STA ×2 (15:12→17:45)
[2018-10-01 17:33] LABS: MUDS CUTOFF CONCENTRATIONS CUTOFF CONC BELOW:
[2018-10-01 17:35] LABS: BILIRUBIN,URINE NEGATIVE (NEGATIVE); GLUCOSE, URINE (UA) NEGATIVE (NEGATIVE); KETONES,URINE (UA) NEGATIVE (NEGATIVE); LEUKOCYTE ESTERASE, URINE SMALL (NEGATIVE); NITRITE,URINE NEGATIVE (NEGATIVE); OCCULT BLOOD,URINE NEGATIVE (NEGATIVE); PH,URINE 6.5 PH (5.0-7.5); PROTEIN,URINE NEGATIVE (NEGATIVE); UROBILINOGEN,URINE 0.2 (NORMAL) E.U./dL (NORMAL)
[2018-10-01 17:36] LABS: CLARITY,URINE HAZY (CLEAR)
[2018-10-01 17:46] LABS: AMPHETAMINE SCREEN,URINE NEGATIVE (NEGATIVE); BENZODIAZEPINES SCREEN, URINE POSITIVE (NEGATIVE); COCAINE SCREEN URINE NEGATIVE (NEGATIVE); METHADONE SCREEN, URINE NEGATIVE (NEGATIVE); METHAMPHETAMINES SCREEN, URINE NEGATIVE (NEGATIVE); OPIATE SCREEN, URINE NEGATIVE (NEGATIVE); OXYCODONE SCREEN, URINE NEGATIVE (NEGATIVE); PROPOXYPHENE SCREEN, URINE NEGATIVE (NEGATIVE); TRICYCLIC ANTIDEPRESSANT,URINE NEGATIVE (NEGATIVE)
[2018-10-01 17:57] LABS: BACTERIA,URINE Few /HPF (None Seen); RBC,URINE 0-5 /HPF (0-5); SQUAMOUS EPITHELIAL CELL,UR FEW Squamous (<= Few); TRICHOMONAS,URINE PRESENT (None Seen)
[2018-10-01 21:28] VITALS: BP 103/66
== END 2018-10-01 21:44 ==
LOC: ED 10:45
DX: F79 Unspecified intellectual disabilities (principal); F32.9 Major depressive disorder, single episode, unspecified; F41.9 Anxiety disorder, unspecified; F43.10 Post-traumatic stress disorder, unspecified; F17.200 Nicotine dependence, unspecified, uncomplicated; S09.90XA Unspecified injury of head, initial encounter; W22.8XXA Striking against or struck by other objects, initial encounter
CPT/HCPCS: 36415; 70450; 70486; 72125; 80053; 80306; 80307; 80320; 80329; 81001; 83690; 84443; 84703; 85025; 87086; 96372; 99284; A9270; J2060; 81003

== ENCOUNTER 2018-10-01 21:40 | Outpatient (CLI) | payer MEDICAID | END 2018-10-01 21:41 | LOC: EMS 21:40 | PROVIDERS: ATTEND Surgery | DX: R45.851 Suicidal ideations (principal) | CPT/HCPCS: A0170; A0425; A0428; A0999 ==

== ENCOUNTER 2018-12-05 14:47 | Emergency (ER) | payer MEDICAID ==
[2018-12-05 14:54] VITALS: BP 122/76
[2018-12-05 16:24] LABS: BILIRUBIN,URINE NEGATIVE (NEGATIVE); GLUCOSE, URINE (UA) NEGATIVE (NEGATIVE); KETONES,URINE (UA) NEGATIVE (NEGATIVE); LEUKOCYTE ESTERASE, URINE TRACE (NEGATIVE); NITRITE,URINE NEGATIVE (NEGATIVE); OCCULT BLOOD,URINE NEGATIVE (NEGATIVE); PROTEIN,URINE NEGATIVE (NEGATIVE); UROBILINOGEN,URINE 0.2 (NORMAL) E.U./dL (NORMAL)
[2018-12-05 16:28] LABS: CLARITY,URINE CLEAR (CLEAR); HCG UR QUAL NEGATIVE
[2018-12-05 16:56] LABS: BACTERIA,URINE None Seen /HPF (None Seen); RBC,URINE None Seen /HPF (0-5); SQUAMOUS EPITHELIAL CELL,UR MANY Squamous (<= Few)
--- NOTE | 2018-12-05 17:54 | ED Physician Documentation ---
History of Present Illness - Stated complaint Stated Complaint: FEMALE - Chief complaint Chief Complaint: General - History obtained from History obtained from: Patient - History of Present Illness Timing: Today Pain level max: 0 Pain level now: 0 - Additonal information Additional information: 28-year-old female presents to the emergency department stating she wants to be checked for sexually transmitted infections. She is asymptomatic. No abdominal pain, no vaginal bleeding or discharge. No itching. No fevers. No abdominal pain. 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 - Present Medications Home Medications: Ambulatory Orders Medication Instructions Recorded Confirmed Lorazepam [Ativan] 1 mg PO Q6HR PRN #12 tablet 09/14/18 Lorazepam [Ativan] 1 mg PO Q6HR #14 tablet 09/21/18 - Allergies Allergies/Adverse Reactions: Allergies Allergy/AdvReac Type Severity Reaction Status Date / Time divalproex sodium Allergy Unknown Verified 12/05/18 14:51 [From Depakote] sertraline HCl * Allergy Unknown Verified 12/05/18 14:51 [From Zoloft] - Social History Does the pt smoke?: Yes Smoking Status: Current every day smoker Does the pt drink ETOH?: No Does the pt have substance abuse?: No - Immunizations Immunizations are current?: No - POLST Patient has POLST: No PD ED PE NORMAL - Vitals Vital signs reviewed: Yes - General General: Alert and oriented X 3, No acute distress - HEENT HEENT: Moist mucous membranes - Neck Neck: Supple, no meningeal sign - Cardiac Cardiac: RRR - Respiratory Respiratory: No respiratory distress, Clear bilaterally - Abdomen Abdomen: Soft, Non tender, Non distended - Female Female : Pt declined - Back Back: No CVA TTP - Derm Derm: Warm and dry - Extremities Extremities: No edema - Neuro Neuro: Alert and oriented X 3 Results - Vitals Vitals: Vital Signs - 24 hr 12/05/18 14:51 Temperature 36.6 C Heart Rate 103 H Respiratory 16 Rate Blood Pressure 122/76 O2 Saturation 98 Oxygen O2 Source Room air - Labs Labs: Laboratory Tests 12/05/18 12/05/18 15:01 15:01 Urine Color YELLOW Urine Clarity CLEAR Urine pH 6.0 Ur Specific [place] 1.015 1.015 Urine Protein NEGATIVE Urine Glucose (UA) NEGATIVE Urine Ketones NEGATIVE Urine Occult Blood NEGATIVE Urine Nitrite NEGATIVE Urine Bilirubin NEGATIVE Urine Urobilinogen 0.2 (NORMAL) Ur Leukocyte Esterase TRACE H Urine RBC None Seen Urine WBC 0-3 Ur Squamous Epith Cells MANY Squamous H Urine Bacteria None Seen Ur Microscopic Review INDICATED Urine Culture Comments NOT INDICATED Urine HCG, Qual NEGATIVE PD MEDICAL DECISION MAKING - ED course Complexity details: reviewed results, considered differential, d/w patient ED course: Urine was sent for gonorrhea and Chlamydia testing. Will take 2-3 days to return. She does not want any further evaluation at this time. Refuses a pelvic exam. States she will follow-up with her doctor for further care. She is otherwise asymptomatic at this time. Patient counseled regarding signs and symptoms for which I believe and urgent re-evaluation would be necessary. Patient with good understanding of and agreement to plan and is comfortable going home at this time This document was made in part using voice recognition software. While efforts are made to proofread this document, sound alike and grammatical errors may occur. Departure - Departure Disposition: 01 Home, Self Care Clinical Impression: Encounter for medical screening examination Condition: Good Instructions: ED Screening Exam Medical Nonurgent Follow-Up: Jess Byrnes ARNP [Primary Care Provider] - Within 1 week Comments: You can follow-up with your doctor for gonorrhea and Chlamydia test results. You should have a full panel of STD testing done with your doctor.
== END 2018-12-05 17:45 | disposition home or self-care (01) ==
LOC: ED 14:47
DX: Z11.3 Encounter for screening for infections with a predominantly sexual mode of transmission (principal); F17.200 Nicotine dependence, unspecified, uncomplicated
CPT/HCPCS: 81001; 81003; 81025; 87086; 87491; 87591; 99282; 99283

== ENCOUNTER 2018-12-16 18:32 | Outpatient (CLI) | payer MEDICAID | END 2018-12-16 18:33 | disposition critical access hospital (66) | LOC: EMS 18:32 | PROVIDERS: ATTEND Surgery | DX: R46.2 Strange and inexplicable behavior (principal) | CPT/HCPCS: A0425; A0429 ==

== ENCOUNTER 2018-12-16 19:07 | Emergency (ER) | payer MEDICAID ==
[2018-12-16 19:16] VITALS: BP 112/90
--- NOTE | 2018-12-16 20:46 | ED Physician Documentation ---
PD HPI MHE - Stated complaint Stated Complaint: MHE - Chief complaint Chief Complaint: MHE - History obtained from History obtained from: Patient - History of Present Illness Primary symptom: Psychosis (She states she has a history of anxiety and PTSD. I asked if she had had any history of bipolar disorder or psychosis. She states she been on medicines for anxiety mainly in the past. She states she was feeling some pressured thoughts and inability to focus. She reportedly had been out walking in the street in [facility] a little erratic and in the middle of the street. Someone called 911 and she was brought here for evaluation. She states she is aware where she is. She denies any suicidal ideation. She would prefer to go home at this time. She denies any current prescription medications but is willing to take some medicine for anxiety and to help with the racing thoughts.), Anxiety. 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 - Present Medications Home Medications: Ambulatory Orders Medication Instructions Recorded Confirmed Lorazepam [Ativan] 1 mg PO Q6HR PRN #12 tablet 09/14/18 Lorazepam [Ativan] 1 mg PO Q6HR #14 tablet 09/21/18 Alprazolam [Xanax] 0.5 mg PO BID #30 tablet 12/16/18 OLANZapine [Zyprexa] 5 mg PO BID #30 tablet 12/16/18 - Allergies Allergies/Adverse Reactions: Allergies Allergy/AdvReac Type Severity Reaction Status Date / Time divalproex sodium Allergy Unknown Verified 12/05/18 14:51 [From Depakote] sertraline HCl * Allergy Unknown Verified 12/05/18 14:51 [From Zoloft] - Social History Does the pt smoke?: Yes Smoking Status: Current every day smoker Does the pt drink ETOH?: No Does the pt have substance abuse?: No - Immunizations Immunizations are current?: No - POLST Patient has POLST: No PD ED PE NORMAL - Vitals Vital signs reviewed: Yes - General General: Alert and oriented X 3, No acute distress, Well developed/nourished - HEENT HEENT: Atraumatic - Neck Neck: Supple, no meningeal sign, No adenopathy - Cardiac Cardiac: RRR, No murmur - Respiratory Respiratory: Clear bilaterally - Derm Derm: Normal color, Warm and dry - Neuro Neuro: Alert and oriented X 3, No motor deficit, Normal speech - Psych Psych: No: Normal affect (Somewhat labile with yelling out at times that she was so go home but then is able to calm and talk in conversation. She is oriented to person place and time. She is able to give plans for going home. She denies any suicidality. She is aware that she had been walking in the street and states she would not be doing that anymore. She does agree to medications for anxiety and racing thoughts.) Results - Vitals Vitals: Vital Signs - 24 hr 12/16/18 12/16/18 19:09 19:38 Temperature 36.9 C Heart Rate 88 90 Respiratory 16 16 Rate Blood Pressure 112/90 H 112/90 H O2 Saturation 98 98 Oxygen O2 Source Room air PD MEDICAL DECISION MAKING - ED course Complexity details: reviewed old records, d/w patient (She is apparently having some mild psychosis. However and she does not seem gravely disabled and is able to state orientation and plans subsequent to the ER. She is agreeable to oral medications. She said she has a [facility] appointment later this week. She prefers going home at this time. I do not see the reason for her to need to stay in the ER nor grounds for detainment. She may worsen and this process in subsequently get that way but at this point is not fitting what I would deem grave disability meaning at risk of harm from neglect to her self.) Departure - Departure Disposition: Home, Self Care Clinical Impression: Post traumatic stress disorder (PTSD), Anxiety, Affective psychosis Condition: Stable Record reviewed to determine appropriate education?: Yes Follow-Up: Jess Byrnes ARNP [Primary Care Provider] - [facility] [Provider Group] Prescriptions: Alprazolam [Xanax] 0.5 mg PO BID #30 tablet OLANZapine [Zyprexa] 5 mg PO BID #30 tablet Comments: Take meds for anxiety and helping with the racing thoughts. Follow up with ANDREAS and your primary provider this week, call for appt. Discharge Date/Time: 12/16/18 22:19
[2018-12-16] MEDS ORDERED: OLANZapine ODT 5 MG TABLET TL STA (21:19)
[2018-12-16] MEDS ORDERED: ALPRAZolam 0.25 MG TABLET PO STA (21:19)
== END 2018-12-16 22:19 | disposition home or self-care (01) ==
LOC: EDUNIT# → ED 19:07
DX: F39 Unspecified mood [affective] disorder (principal); F43.10 Post-traumatic stress disorder, unspecified; F41.9 Anxiety disorder, unspecified; F17.200 Nicotine dependence, unspecified, uncomplicated
CPT/HCPCS: 99283; A9270

== ENCOUNTER 2018-12-17 17:08 | Emergency (ER) | payer MEDICAID ==
[2018-12-17] MEDS ORDERED: OLANZapine ODT 5 MG TABLET TL STA (17:27)
[2018-12-17] MEDS ORDERED: SODIUM CHLORIDE 0.9% 1,000 ML IV ONE (17:27)
[2018-12-17 17:47] LABS: BASOPHILS # (AUTO) 0.1 10^3/uL (0.0-0.1); BASOPHILS % (AUTO) 0.7 %; EOSINOPHILS # (AUTO) 0.2 10^3/uL (0.0-0.7); EOSINOPHILS % (AUTO) 2.5 %; HGB - HEMOGLOBIN 12.7 g/dL (12.0-16.0); LYMPHOCYTES # (AUTO) 1.8 10^3/uL (1.5-3.5); LYMPHOCYTES % (AUTO) 21.5 %; MEAN CORPUSCULAR HEMOGLOBIN 29.8 pg (27.0-31.0); MEAN CORPUSCULAR HGB CONC 33.7 g/dL (32.0-36.0); MEAN CORPUSCULAR VOLUME 88.5 fL (81.0-99.0); MEAN PLATELET VOLUME 7.6 fL (7.9-10.8); MONOCYTES # (AUTO) 0.5 10^3/uL (0.0-1.0); MONOCYTES % (AUTO) 5.4 %; NEUTROPHILS % (AUTO) 69.9 %; PLT - PLATELET COUNT 252 10^3/uL (130-450); RED BLOOD COUNT 4.25 10^6/uL (4.20-5.40); RED CELL DISTRIBUTION WIDTH 13.7 % (12.0-15.0); WHITE BLOOD COUNT 8.5 x10^3/uL (4.8-10.8)
[2018-12-17 18:01] LABS: ACETAMINOPHEN < 10 ug/mL (10-30); ALBUMIN 4.3 g/dL (3.2-5.5); ALBUMIN/GLOBULIN RATIO 1.5 (1.0-2.2); ALKALINE PHOSPHATASE 49 IU/L (42-121); ALT ALANINE AMINOTRANSFERASE 14 IU/L (10-60); AST ASPARTATE AMINOTRANSFERASE 24 IU/L (10-42); BILIRUBIN,TOTAL 0.9 mg/dL (0.2-1.0); BUN - BLOOD UREA NITROGEN 10 mg/dL (6-20); CALCIUM 9.1 mg/dL (8.5-10.3); CARBON DIOXIDE - CO2 25 mmol/L (21-32); CHLORIDE 105 mmol/L (101-111); CK- CREATINE KINASE 157 IU/L (22-269); CREATININE 0.7 mg/dL (0.4-1.0); GFR - MDRD 100 (>89); GLUCOSE 91 mg/dL (70-100); LIPASE 32 U/L (22-51); SALICYLATE < 6.0 mg/dL; SODIUM 138 mmol/L (135-145); TOTAL PROTEIN 7.1 g/dL (6.7-8.2)
[2018-12-17 18:10] LABS: HCG,QUALITATIVE BLOOD NEGATIVE
[2018-12-17 18:14] LABS: MUDS CUTOFF CONCENTRATIONS CUTOFF CONC BELOW:
[2018-12-17 18:18] LABS: BILIRUBIN,URINE NEGATIVE (NEGATIVE); GLUCOSE, URINE (UA) NEGATIVE (NEGATIVE); KETONES,URINE (UA) NEGATIVE (NEGATIVE); LEUKOCYTE ESTERASE, URINE NEGATIVE (NEGATIVE); NITRITE,URINE NEGATIVE (NEGATIVE); OCCULT BLOOD,URINE MODERATE (NEGATIVE); PH,URINE 6.5 PH (5.0-7.5); PROTEIN,URINE NEGATIVE (NEGATIVE); UROBILINOGEN,URINE 0.2 (NORMAL) E.U./dL (NORMAL)
[2018-12-17 18:20] LABS: CLARITY,URINE CLEAR (CLEAR)
[2018-12-17 18:34] LABS: AMPHETAMINE SCREEN,URINE NEGATIVE (NEGATIVE); BACTERIA,URINE None Seen /HPF (None Seen); BENZODIAZEPINES SCREEN, URINE POSITIVE (NEGATIVE); COCAINE SCREEN URINE NEGATIVE (NEGATIVE); METHADONE SCREEN, URINE NEGATIVE (NEGATIVE); METHAMPHETAMINES SCREEN, URINE NEGATIVE (NEGATIVE); OPIATE SCREEN, URINE NEGATIVE (NEGATIVE); OXYCODONE SCREEN, URINE NEGATIVE (NEGATIVE); PROPOXYPHENE SCREEN, URINE NEGATIVE (NEGATIVE); RBC,URINE 0-5 /HPF (0-5); SQUAMOUS EPITHELIAL CELL,UR MOD Squamous (<= Few); TRICYCLIC ANTIDEPRESSANT,URINE NEGATIVE (NEGATIVE)
--- NOTE | 2018-12-17 18:52 | ED Physician Documentation ---
PD HPI MHE - Stated complaint Stated Complaint: MHE - Chief complaint Chief Complaint: MHE - Additional information Additional information: 28-year-old female presents the emergency department for evaluation of her mind racing. The patient wants help with the amount of racing thoughts that she has been experiencing. Presently, the patient is denying suicidal homicidal ideations. The patient denies any acute medical complaint. The patient is requesting placement into a treatment center to help manage her mental health issues. Symptoms are described as moderate. No clear triggering factors. No relieving factors Review of Systems Constitutional: denies: Fever, Chills Eyes: denies: Discharge Ears: denies: Ear pain Nose: denies: Congestion Throat: denies: Sore throat Cardiac: denies: Chest pain / pressure Respiratory: denies: Cough GI: denies: Abdominal Pain : denies: Dysuria Skin: denies: Rash Musculoskeletal: denies: Neck pain Neurologic: denies: Generalized weakness Psychiatric: reports: Anxiety. 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 - Present Medications Home Medications: Ambulatory Orders Medication Instructions Recorded Confirmed Lorazepam [Ativan] 1 mg PO Q6HR #14 tablet 09/21/18 OLANZapine [Zyprexa] 5 mg PO BID #30 tablet 12/16/18 12/17/18 - Allergies Allergies/Adverse Reactions: Allergies Allergy/AdvReac Type Severity Reaction Status Date / Time divalproex sodium Allergy Unknown Verified 12/17/18 17:13 [From Depakote] sertraline HCl * Allergy Unknown Verified 12/17/18 17:13 [From Zoloft] - Social History Does the pt smoke?: Yes Smoking Status: Current every day smoker Does the pt drink ETOH?: No Does the pt have substance abuse?: No - Immunizations Immunizations are current?: No - POLST Patient has POLST: No PD ED PE NORMAL - General General: Alert and oriented X 3, No acute distress - HEENT HEENT: Atraumatic, PERRL, EOMI, Ears normal - Cardiac Cardiac: RRR, Strong equal pulses - Respiratory Respiratory: No respiratory distress, Clear bilaterally - Derm Derm: Normal color - Extremities Extremities: No deformity - Neuro Neuro: Alert and oriented X 3, No motor deficit, Normal speech PD ED PE EXPANDED - Psych Psych: Depressed, Withdrawn, Poor eye contact. No: Intoxicated / AOB, Suicidal, Homicidal, Agitated, Combative Results - Vitals Vitals: Vital Signs - 24 hr 12/17/18 17:11 Temperature 36.2 C L Heart Rate 82 Respiratory 14 Rate Blood Pressure 115/98 H O2 Saturation 98 Oxygen O2 Source Room air - Labs Labs: Laboratory Tests 12/17/18 12/17/18 12/17/18 17:35 17:35 18:00 WBC 8.5 RBC 4.25 Hgb 12.7 Hct 37.6 MCV 88.5 MCH 29.8 MCHC 33.7 RDW 13.7 Plt Count 252 MPV 7.6 L Neut # (Auto) 6.0 Lymph # (Auto) 1.8 [place] # (Auto) 0.5 Eos # (Auto) 0.2 Baso # (Auto) 0.1 Absolute Nucleated RBC 0.00 Nucleated RBC % 0.0 Sodium 138 Potassium 3.8 Chloride 105 Carbon Dioxide 25 Anion Gap 8.0 BUN 10 Creatinine 0.7 Estimated GFR (MDRD) 100 Glucose 91 Calcium 9.1 Total Bilirubin 0.9 AST 24 ALT 14 Alkaline Phosphatase 49 Total Creatine Kinase 157 Total Protein 7.1 Albumin 4.3 Globulin 2.8 Albumin/Globulin Ratio 1.5 Lipase 32 Serum HCG, Qual NEGATIVE Urine Color YELLOW Urine Clarity CLEAR Urine pH 6.5 Ur Specific [place] <=1.005 Urine Protein NEGATIVE Urine Glucose (UA) NEGATIVE Urine Ketones NEGATIVE Urine Occult Blood MODERATE H Urine Nitrite NEGATIVE Urine Bilirubin NEGATIVE Urine Urobilinogen 0.2 (NORMAL) Ur Leukocyte Esterase NEGATIVE Urine RBC 0-5 Urine WBC 0-3 Ur Squamous Epith Cells MOD Squamous H Urine Bacteria None Seen Ur Microscopic Review INDICATED Urine Culture Comments NOT INDICATED Salicylates < 6.0 Urine Opiates Screen NEGATIVE Ur Oxycodone Screen NEGATIVE Urine Methadone Screen NEGATIVE Ur Propoxyphene Screen NEGATIVE Acetaminophen < 10 L Ur Barbiturates Screen NEGATIVE Ur Tricyclics Screen NEGATIVE Ur Phencyclidine Scrn NEGATIVE Ur Amphetamine Screen NEGATIVE U Methamphetamines Scrn NEGATIVE U Benzodiazepines Scrn POSITIVE H Urine Cocaine Screen NEGATIVE U Cannabinoids Screen NEGATIVE Ethyl Alcohol < 5.0 PD MEDICAL DECISION MAKING - ED course ED course: The patient currently is voluntary and requesting help with the excessive racing thoughts. The patient is medically stable and appropriate for placement into a behavioral health center. The patient is pending placement, the patient is voluntary. The patient's care was turned over to Dr. Pierre at 22:00 PM Departure - Departure Clinical Impression: Anxiety Depressed Qualifiers: Depression Type: unspecified Qualified Code(s): F32.9 - Major depressive d isorder, single episode, unspecified
--- NOTE | 2018-12-18 06:52 | ED Physician Documentation ---
ED Addendum - Addendum Addendum: 12/18/18 06:52 Patient slept during my shift. Patient was signed out to the oncoming emergency department physician. She was turned down by [facility] last night. Will return back to social work in the morning
[2018-12-18] MEDS ORDERED: LORazepam 1 MG TABLET PO STA (10:43)
--- NOTE | 2018-12-18 12:21 | ED Physician Documentation ---
ED Addendum - Addendum Addendum: 12/18/18 13:00 The patient's care was turned over to me at [address] Momin. The patient was seen and evaluated by the DCR who does not find any reason for involuntary placement. They have arranged for outpatient management and feel comfortable with the patient being managed as an outpatient. Social work was unable to find a respite bed. The patient is comfortable being discharged. Social work will attempt to have her mother come and pick her up. Presently the patient denies any suicidal homicidal any. The patient will return to the emergency department for any worsening or concerns. The patient will be discharged home
[2018-12-18 13:07] VITALS: BP 116/75
== END 2018-12-18 13:12 | disposition home or self-care (01) ==
LOC: ED 17:08
DX: F41.9 Anxiety disorder, unspecified (principal)
CPT/HCPCS: 36415; 80053; 80306; 80307; 80320; 80329; 81001; 82550; 83690; 84703; 85025; 96360; 99283; A9270; J8499; 81003; 87086

== ENCOUNTER 2018-12-24 17:54 | Outpatient (CLI) | payer MEDICAID | END 2018-12-24 17:55 | disposition critical access hospital (66) | LOC: EMS 17:54 | PROVIDERS: ATTEND Surgery | DX: R46.89 Other symptoms and signs involving appearance and behavior (principal) | CPT/HCPCS: A0425; A0429; A0999 ==

== ENCOUNTER 2018-12-24 18:17 | Emergency (ER) | payer MEDICAID ==
--- NOTE | 2018-12-24 20:01 | ED Physician Documentation ---
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 - Present Medications Home Medications: Ambulatory Orders Medication Instructions Recorded Confirmed Lorazepam [Ativan] 1 mg PO Q6HR #14 tablet 09/21/18 OLANZapine [Zyprexa] 5 mg PO BID #30 tablet 12/16/18 12/17/18 - Allergies Allergies/Adverse Reactions: Allergies Allergy/AdvReac Type Severity Reaction Status Date / Time divalproex sodium Allergy Unknown Verified 12/17/18 17:13 [From Depakote] sertraline HCl * Allergy Unknown Verified 12/17/18 17:13 [From Zoloft] - Social History Does the pt smoke?: Yes Smoking Status: Current every day smoker Does the pt drink ETOH?: No Does the pt have substance abuse?: No - Immunizations Immunizations are current?: No - POLST Patient has POLST: No PD ED PE NORMAL - Vitals Vital signs reviewed: Yes - General General: No acute distress, Other (alert, oriented to person and place, but not time, disheveled) - HEENT HEENT: PERRL, Moist mucous membranes - Neck Neck: Supple, no meningeal sign - Cardiac Cardiac: RRR - Respiratory Respiratory: No respiratory distress, Clear bilaterally - Abdomen Abdomen: Soft, Non tender, Non distended - Derm Derm: Warm and dry, No rash - Extremities Extremities: No deformity - Neuro Neuro: No motor deficit, No sensory deficit - Psych Psych: Other (rambling in her speech. Stating that "we are trying to kill her" and that "he is going to kill her (a 3rd republican her) because she needs an IV) Results - Vitals Vitals: Vital Signs - 24 hr 12/24/18 12/25/18 18:29 02:34 Temperature 37.3 C Heart Rate 77 84 Respiratory 16 16 Rate Blood Pressure 122/78 116/72 O2 Saturation 96 97 Oxygen O2 Source Room air PD MEDICAL DECISION MAKING - ED course Complexity details: reviewed old records, re-evaluated patient, considered differential, d/w patient ED course: Patient cleared significantly after Ativan and she appears to be back to her normal baseline. She is not suicidal or homicidal. She states that she has an appointment this morning with her counselor. She agrees to take her medications. She is not actively psychotic after medication in the emergency department. She is going to stay with her family. Patient counseled regarding signs and symptoms for which I believe and urgent re-evaluation would be necessary. Patient with good understanding of and agreement to plan and is comfortable going home at this time This document was made in part using voice recognition software. While efforts are made to proofread this document, sound alike and grammatical errors may occur. She does not want to be hospitalized in a psychiatric hospital. She does not appear gravely disabled at this time. Departure - Departure Disposition: 01 Home, Self Care Clinical Impression: Anxiety, Post traumatic stress disorder (PTSD), Affective psychosis Condition: Stable Instructions: ED Psychosis Follow-Up: Jess Byrnes ARNP [Primary Care Provider] - Tomorrow Comments: You need to continue your medications at home. You need to see her counselor tomorrow as scheduled. Return if you worsen. Crisis Line and is available to talk to someone [email or web address] is also available to chat with someone online if you prefer. There are also many resources on this website and apps for your phone to help with your mental health You can also text the word START to [phone] to chat with someome via text. Discharge Date/Time: 12/25/18 04:55
[2018-12-24] MEDS ORDERED: LORazepam 1 MG TABLET PO STA (20:22)
[2018-12-24] MEDS ORDERED: OLANZapine ODT 5 MG TABLET TL STA (20:22)
[2018-12-25 04:53] VITALS: BP 116/72
== END 2018-12-25 04:55 | disposition home or self-care (01) ==
LOC: EDUNIT# → ED 18:17
DX: F41.9 Anxiety disorder, unspecified (principal); F43.10 Post-traumatic stress disorder, unspecified; F39 Unspecified mood [affective] disorder; F17.200 Nicotine dependence, unspecified, uncomplicated
CPT/HCPCS: 80053; 80307; 80320; 80329; 83690; 84443; 85025; 99283

== ENCOUNTER 2018-12-25 11:44 | Emergency (ER) | payer MEDICAID ==
[2018-12-25 12:50] LABS: MUDS CUTOFF CONCENTRATIONS CUTOFF CONC BELOW:
[2018-12-25 12:52] LABS: BILIRUBIN,URINE NEGATIVE (NEGATIVE); GLUCOSE, URINE (UA) NEGATIVE (NEGATIVE); KETONES,URINE (UA) NEGATIVE (NEGATIVE); LEUKOCYTE ESTERASE, URINE SMALL (NEGATIVE); NITRITE,URINE NEGATIVE (NEGATIVE); OCCULT BLOOD,URINE TRACE-LYSE (NEGATIVE); PH,URINE 5.5 PH (5.0-7.5); PROTEIN,URINE NEGATIVE (NEGATIVE); UROBILINOGEN,URINE 0.2 (NORMAL) E.U./dL (NORMAL)
[2018-12-25 12:55] LABS: CLARITY,URINE CLEAR (CLEAR)
[2018-12-25 12:57] LABS: HCG UR QUAL NEGATIVE
[2018-12-25 13:02] LABS: BASOPHILS # (AUTO) 0.1 10^3/uL (0.0-0.1); BASOPHILS % (AUTO) 0.7 %; EOSINOPHILS % (AUTO) 0.4 %; HGB - HEMOGLOBIN 12.4 g/dL (12.0-16.0); LYMPHOCYTES # (AUTO) 1.4 10^3/uL (1.5-3.5); LYMPHOCYTES % (AUTO) 16.3 %; MEAN CORPUSCULAR HEMOGLOBIN 29.9 pg (27.0-31.0); MEAN CORPUSCULAR HGB CONC 33.8 g/dL (32.0-36.0); MEAN CORPUSCULAR VOLUME 88.5 fL (81.0-99.0); MEAN PLATELET VOLUME 7.8 fL (7.9-10.8); MONOCYTES # (AUTO) 0.5 10^3/uL (0.0-1.0); MONOCYTES % (AUTO) 5.6 %; NEUTROPHILS # (AUTO) 6.4 10^3/uL (1.5-6.6); PLT - PLATELET COUNT 205 10^3/uL (130-450); RED BLOOD COUNT 4.16 10^6/uL (4.20-5.40); RED CELL DISTRIBUTION WIDTH 13.7 % (12.0-15.0); WHITE BLOOD COUNT 8.4 x10^3/uL (4.8-10.8)
[2018-12-25 13:04] LABS: AMPHETAMINE SCREEN,URINE NEGATIVE (NEGATIVE); BENZODIAZEPINES SCREEN, URINE POSITIVE (NEGATIVE); COCAINE SCREEN URINE NEGATIVE (NEGATIVE); METHADONE SCREEN, URINE NEGATIVE (NEGATIVE); METHAMPHETAMINES SCREEN, URINE NEGATIVE (NEGATIVE); OPIATE SCREEN, URINE NEGATIVE (NEGATIVE); OXYCODONE SCREEN, URINE NEGATIVE (NEGATIVE); PROPOXYPHENE SCREEN, URINE NEGATIVE (NEGATIVE); TRICYCLIC ANTIDEPRESSANT,URINE NEGATIVE (NEGATIVE)
--- NOTE | 2018-12-25 13:07 | ED Physician Documentation ---
PD HPI MHE - Stated complaint Stated Complaint: MHE - Chief complaint Chief Complaint: MHE - History obtained from History obtained from: Patient, Police - History of Present Illness Primary symptom: Suicidal ideation, Psychosis, Anxiety Timing - onset: How many weeks ago (has had increased symptoms for couple of weeks.) Contributing factors: No: Substance abuse - ETOH, Substance abuse - drugs (she states uses marijuana. No other drugs. Does not take her Rx meds.) Similar symptoms before: Diagnosis (PTSD, Anxiety, psychosis.) Recently seen: Clinic, Emergency Dept (She has had several visits in the last several days due to similar symptoms. She had been able to be focused and converse in state short-term plans well enough that she did not seem gravely disabled. However she does seem to be having increased symptoms progressing over the several days to week duration and seems increased today. She was seen [facility] today by her counselor and they felt that she needed hospitalization.) Review of Systems Constitutional: denies: Fever Nose: denies: Rhinorrhea / runny nose, Congestion Throat: denies: Sore throat Respiratory: denies: Cough GI: denies: Nausea, Vomiting, Diarrhea : reports: Dysuria. 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 - Present Medications Home Medications: Ambulatory Orders Medication Instructions Recorded Confirmed Lorazepam [Ativan] 1 mg PO Q6HR #14 tablet 09/21/18 OLANZapine [Zyprexa] 5 mg PO BID #30 tablet 12/16/18 12/17/18 Metronidazole [Flagyl] 500 mg PO BID #14 tablet 12/25/18 - Allergies Allergies/Adverse Reactions: Allergies Allergy/AdvReac Type Severity Reaction Status Date / Time divalproex sodium Allergy Unknown Verified 12/25/18 11:50 [From Depakote] sertraline HCl * Allergy Unknown Verified 12/25/18 11:50 [From Zoloft] - Social History Does the pt smoke?: Yes Smoking Status: Current every day smoker Does the pt drink ETOH?: No Does the pt have substance abuse?: No - Immunizations Immunizations are current?: No - POLST Patient has POLST: No PD ED PE NORMAL - Vitals Vital signs reviewed: Yes - General General: Alert and oriented X 3, No acute distress (anxious with labile emotions. Able to answer questions slowly with period of thoughtfulness. ), Well developed/nourished (but seems unbathed currently) - HEENT HEENT: Pharynx benign - Neck Neck: Supple, no meningeal sign, No adenopathy - Cardiac Cardiac: RRR, No murmur - Respiratory Respiratory: Clear bilaterally - Abdomen Abdomen: Soft, Non tender - Derm Derm: Normal color, Warm and dry - Neuro Neuro: Alert and oriented X 3, No motor deficit. No: Normal speech (somewhat tangential and sluggish) Eye Opening: Spontaneous Motor: Obeys Commands Verbal: Oriented GCS Score: 15 - Psych Psych: No: Normal affect (labile with crying and screaming at times. ) Results - Vitals Vitals: Vital Signs - 24 hr 12/25/18 11:45 Temperature 36.3 C L Heart Rate 84 Respiratory 18 Rate Blood Pressure 119/80 O2 Saturation 100 Oxygen O2 Source Room air - Labs Labs: Laboratory Tests 12/25/18 12/25/18 12/25/18 12:40 12:40 12:57 WBC 8.4 RBC 4.16 L Hgb 12.4 Hct 36.8 L MCV 88.5 MCH 29.9 MCHC 33.8 RDW 13.7 Plt Count 205 MPV 7.8 L Neut # (Auto) 6.4 Lymph # (Auto) 1.4 L [place] # (Auto) 0.5 Eos # (Auto) 0.0 Baso # (Auto) 0.1 Absolute Nucleated RBC 0.00 Nucleated RBC % 0.0 Sodium Potassium Chloride Carbon Dioxide Anion Gap BUN Creatinine Estimated GFR (MDRD) Glucose Calcium Total Bilirubin AST ALT Alkaline Phosphatase Total Protein Albumin Globulin Albumin/Globulin Ratio Lipase TSH Urine Color YELLOW Urine Clarity CLEAR Urine pH 5.5 Ur Specific [place] 1.015 Urine Protein NEGATIVE Urine Glucose (UA) NEGATIVE Urine Ketones NEGATIVE Urine Occult Blood TRACE-LYSE Urine Nitrite NEGATIVE Urine Bilirubin NEGATIVE Urine Urobilinogen 0.2 (NORMAL) Ur Leukocyte Esterase SMALL H Urine RBC 6-10 H Urine WBC 6-10 H Urine WBC Clumps PRESENT Ur Squamous Epith Cells MANY Squamous H Urine Bacteria Many H Urine Trichomonas PRESENT H Ur Microscopic Review INDICATED Urine Culture Comments NOT INDICATED Urine HCG, Qual NEGATIVE Salicylates Urine Opiates Screen NEGATIVE Ur Oxycodone Screen NEGATIVE Urine Methadone Screen NEGATIVE Ur Propoxyphene Screen NEGATIVE Acetaminophen Ur Barbiturates Screen NEGATIVE Ur Tricyclics Screen NEGATIVE Ur Phencyclidine Scrn NEGATIVE Ur Amphetamine Screen NEGATIVE U Methamphetamines Scrn NEGATIVE U Benzodiazepines Scrn POSITIVE H Urine Cocaine Screen NEGATIVE U Cannabinoids Screen NEGATIVE Ethyl Alcohol 12/25/18 12/25/18 12:57 12:57 WBC RBC Hgb Hct MCV MCH MCHC RDW Plt Count MPV Neut # (Auto) Lymph # (Auto) [place] # (Auto) Eos # (Auto) Baso # (Auto) Absolute Nucleated RBC Nucleated RBC % Sodium 135 Potassium 3.7 Chloride 102 Carbon Dioxide 22 Anion Gap 11.0 BUN 10 Creatinine 0.6 Estimated GFR (MDRD) 120 Glucose 91 Calcium 9.0 Total Bilirubin 1.2 H AST 22 ALT 15 Alkaline Phosphatase 48 Total Protein 7.0 Albumin 4.1 Globulin 2.9 Albumin/Globulin Ratio 1.4 Lipase 41 TSH 1.13 Urine Color Urine Clarity Urine pH Ur Specific [place] Urine Protein Urine Glucose (UA) Urine Ketones Urine Occult Blood Urine Nitrite Urine Bilirubin Urine Urobilinogen Ur Leukocyte Esterase Urine RBC Urine WBC Urine WBC Clumps Ur Squamous Epith Cells Urine Bacteria Urine Trichomonas Ur Microscopic Review Urine Culture Comments Urine HCG, Qual Salicylates < 6.0 Urine Opiates Screen Ur Oxycodone Screen Urine Methadone Screen Ur Propoxyphene Screen Acetaminophen < 10 L Ur Barbiturates Screen Ur Tricyclics Screen Ur Phencyclidine Scrn Ur Amphetamine Screen U Methamphetamines Scrn U Benzodiazepines Scrn Urine Cocaine Screen U Cannabinoids Screen Ethyl Alcohol < 5.0 PD MEDICAL DECISION MAKING - ED course Complexity details: reviewed old records (She has been seen several times here in the ER because of disorganized thought process and tearfulness and anxiety. She had a counseling appointment today and had similar symptoms and also some suicidal ideation. She was sent over to the ER for medical screening and has a revocation of her LR O due to the symptoms and her not taking medicines for the past month.), reviewed results (Her basic labs appear normal. She does have some white cells on urinalysis and they report some trichomonas. We will give her antibiotics for bacterial vaginitis.), considered differential (She is having labile emotions and anxiety. She does get up and try to leave and then gets very tearful and is screaming. She does state that she would like to feel better. I offered her oral medications but she initially declined. Given her state of mind, I felt it appropriate to give her an injection of medication to help with her thought process and anxiety at the moment. She is supposed to be prescribed and taking Zyprexa and so I gave her a dose of that.), d/w patient, d/w art sales consultant ([facility] Meg Campbell came and saw the patient and arranged transfer to psychiatric hospital at [place] for her disability and psychosis and suicidality and based on a revocation of her LRL.) Departure - Departure Disposition: [facility] Hosp/Unit DC/Xfer Clinical Impression: Encounter for medical screening examination, Post traumatic stress disorder (PTSD), Gravely disabled, Bacterial vaginitis Condition: Stable Record reviewed to determine appropriate education?: Yes Prescriptions: Metronidazole [Flagyl] 500 mg PO BID #14 tablet
[2018-12-25 13:13] LABS: BACTERIA,URINE Many /HPF (None Seen); SQUAMOUS EPITHELIAL CELL,UR MANY Squamous (<= Few); WBC CLUMPS,URINE PRESENT
[2018-12-25 13:14] LABS: TRICHOMONAS,URINE PRESENT (None Seen)
[2018-12-25 13:16] LABS: ACETAMINOPHEN < 10 ug/mL (10-30); ALBUMIN 4.1 g/dL (3.2-5.5); ALBUMIN/GLOBULIN RATIO 1.4 (1.0-2.2); ALKALINE PHOSPHATASE 48 IU/L (42-121); ALT ALANINE AMINOTRANSFERASE 15 IU/L (10-60); AST ASPARTATE AMINOTRANSFERASE 22 IU/L (10-42); BILIRUBIN,TOTAL 1.2 mg/dL (0.2-1.0); BUN - BLOOD UREA NITROGEN 10 mg/dL (6-20); CARBON DIOXIDE - CO2 22 mmol/L (21-32); CHLORIDE 102 mmol/L (101-111); CREATININE 0.6 mg/dL (0.4-1.0); GFR - MDRD 120 (>89); GLUCOSE 91 mg/dL (70-100); LIPASE 41 U/L (22-51); SALICYLATE < 6.0 mg/dL; SODIUM 135 mmol/L (135-145)
[2018-12-25] MEDS ORDERED: LORazepam 0.5 MG TABLET PO STA (13:23)
[2018-12-25] MEDS ORDERED: OLANZapine 10 MG VIAL IM STA ×2 (13:23→13:37)
[2018-12-25] MEDS ORDERED: metroNIDAZOLE 250 MG TABLET PO STA (13:24)
[2018-12-25 23:28] VITALS: BP 110/61
== END 2018-12-25 23:35 ==
LOC: EDUNIT# → ED 11:44
DX: Z00.8 Encounter for other general examination (principal); F43.10 Post-traumatic stress disorder, unspecified; F41.9 Anxiety disorder, unspecified; F43.9 Reaction to severe stress, unspecified; F79 Unspecified intellectual disabilities; N76.0 Acute vaginitis; R45.851 Suicidal ideations; B96.89 Other specified bacterial agents as the cause of diseases classified elsewhere
CPT/HCPCS: 36415; 80053; 80306; 80307; 80320; 80329; 81001; 81025; 83690; 84443; 85025; 93005; 96372; 99283; 99284; A9270; J8499; 81003; 87086

== ENCOUNTER 2018-12-25 23:37 | Outpatient (CLI) | payer MEDICAID | END 2018-12-25 23:38 | disposition short-term general hospital (02) | LOC: EMS 23:37 | PROVIDERS: ATTEND Surgery | DX: R45.851 Suicidal ideations (principal); F29 Unspecified psychosis not due to a substance or known physiological condition | CPT/HCPCS: A0425; A0428; A0999 ==

== ENCOUNTER 2021-04-14 17:28 | Outpatient (CLI) | payer MEDICAID | END 2021-04-14 17:29 | disposition critical access hospital (66) | LOC: EMS 17:28 | DX: R41.82 Altered mental status, unspecified (principal); R46.89 Other symptoms and signs involving appearance and behavior; Z78.1 Physical restraint status | CPT/HCPCS: A0425; A0429; A0999 ==

== ENCOUNTER 2021-04-14 17:57 | Emergency (ER) | payer MEDICAID ==
[2021-04-14] MEDS ORDERED: OLANZapine ODT 5 MG TABLET TL ONE ×2 (18:06→19:15)
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
[2021-04-14 18:14] LABS: BASOPHILS % (AUTO) 0.4 %; EOSINOPHILS # (AUTO) 0.1 10^3/uL (0.0-0.7); EOSINOPHILS % (AUTO) 0.7 %; HGB - HEMOGLOBIN 12.3 g/dL (12.0-16.0); LYMPHOCYTES # (AUTO) 2.4 10^3/uL (1.5-3.5); LYMPHOCYTES % (AUTO) 26.3 %; MEAN CORPUSCULAR HEMOGLOBIN 28.7 pg (27.0-31.0); MEAN CORPUSCULAR HGB CONC 33.2 g/dL (32.0-36.0); MEAN CORPUSCULAR VOLUME 86.4 fL (81.0-99.0); MEAN PLATELET VOLUME 9.7 fL (7.9-10.8); MONOCYTES # (AUTO) 0.5 10^3/uL (0.0-1.0); MONOCYTES % (AUTO) 5.5 %; NEUTROPHILS % (AUTO) 66.9 %; PLT - PLATELET COUNT 223 10^3/uL (130-450); RED BLOOD COUNT 4.28 10^6/uL (4.20-5.40); RED CELL DISTRIBUTION WIDTH 14.1 % (12.0-15.0)
[2021-04-14 18:30] LABS: ACETAMINOPHEN < 10 ug/mL (10-30); ALBUMIN 4.5 g/dL (3.2-5.5); ALBUMIN/GLOBULIN RATIO 1.5 (1.0-2.2); ALKALINE PHOSPHATASE 40 IU/L (42-121); ALT ALANINE AMINOTRANSFERASE 19 IU/L (10-60); AST ASPARTATE AMINOTRANSFERASE 27 IU/L (10-42); BILIRUBIN,TOTAL 0.7 mg/dL (0.2-1.0); BUN - BLOOD UREA NITROGEN 9 mg/dL (6-20); CALCIUM 9.4 mg/dL (8.5-10.3); CARBON DIOXIDE - CO2 23 mmol/L (21-32); CHLORIDE 103 mmol/L (101-111); CREATININE 0.8 mg/dL (0.4-1.0); ETOH - ETHANOL < 5.0 mg/dL; GFR - MDRD 85 (>89); GLUCOSE 110 mg/dL (70-100); LIPASE 63 U/L (22-51); POTASSIUM 3.3 mmol/L (3.5-5.0); SALICYLATE < 6.0 mg/dL; SODIUM 136 mmol/L (135-145); TOTAL PROTEIN 7.5 g/dL (6.7-8.2)
[2021-04-14 18:50] LABS: MUDS CUTOFF CONCENTRATIONS CUTOFF CONC BELOW:
[2021-04-14 18:56] LABS: GLUCOSE, URINE (UA) NEGATIVE (NEGATIVE); KETONES,URINE (UA) TRACE mg/dL (NEGATIVE); LEUKOCYTE ESTERASE, URINE NEGATIVE (NEGATIVE); NITRITE,URINE NEGATIVE (NEGATIVE); OCCULT BLOOD,URINE SMALL (NEGATIVE); PROTEIN,URINE 100 mg/dL (NEGATIVE); UROBILINOGEN,URINE 0.2 (NORMAL) E.U./dL (NORMAL)
[2021-04-14 19:02] LABS: BILIRUBIN,URINE NEGATIVE (NEGATIVE); CLARITY,URINE HAZY (CLEAR); HCG UR QUAL NEGATIVE; ICTOTEST,URINE NEGATIVE
[2021-04-14 19:11] LABS: AMPHETAMINE SCREEN,URINE NEGATIVE (NEGATIVE); BARBITURATE SCREEN,UR NEGATIVE (NEGATIVE); BENZODIAZEPINES SCREEN, URINE NEGATIVE (NEGATIVE); COCAINE SCREEN URINE NEGATIVE (NEGATIVE); METHADONE SCREEN, URINE NEGATIVE (NEGATIVE); METHAMPHETAMINES SCREEN, URINE NEGATIVE (NEGATIVE); OPIATE SCREEN, URINE NEGATIVE (NEGATIVE); OXYCODONE SCREEN, URINE NEGATIVE (NEGATIVE); PROPOXYPHENE SCREEN, URINE NEGATIVE (NEGATIVE); THC CANNABINOID SCREEN, URINE POSITIVE (NEGATIVE); TRICYCLIC ANTIDEPRESSANT,URINE NEGATIVE (NEGATIVE)
[2021-04-14 19:16] LABS: BACTERIA,URINE Few /HPF (None Seen); RBC,URINE 0-5 /HPF (0-5); SQUAMOUS EPITHELIAL CELL,UR MOD Squamous (<= Few); WBC,URINE 0-3 /HPF (0-5)
[2021-04-14 19:17] LABS: CRYSTALS,URINE 6-10 Calcium Oxalate /LPF; MUCUS,URINE Marked Strands
[2021-04-14 19:33] LABS: B. PARAPERTUSSIS- RESP PCR PAN NOT DETECTED; B. PERTUSSIS- RESP PCR PANEL NOT DETECTED; C. PNEUMONIAE- RESP PCR PANEL NOT DETECTED; CORONAVIRUS 229E-RESP PCR NOT DETECTED; CORONAVIRUS HKU1-RESP PCR NOT DETECTED; CORONAVIRUS NL63-RESP PCR NOT DETECTED; CORONAVIRUS OC43-RESP PCR NOT DETECTED; HUMAN METAPNEUMOVIRUS NOT DETECTED; INFLUENZA A- RESP PCR PANEL NOT DETECTED; INFLUENZA B - RESP PCR PANEL NOT DETECTED; M. PNEUMONIAE- RESP PCR PANEL NOT DETECTED; PARAINFLUENZA VIRUS 1 NOT DETECTED; PARAINFLUENZA VIRUS 2 NOT DETECTED; PARAINFLUENZA VIRUS 3 NOT DETECTED; PARAINFLUENZA VIRUS 4 NOT DETECTED; RHINOVIRUS/ENTEROVIRUS NOT DETECTED; RSV- RESP PCR PANEL NOT DETECTED; SARS-CoV-2 -RESP PCR PANEL NOT DETECTED
[2021-04-14] MEDS ORDERED: LORazepam 1 MG TABLET PO STA (20:14)
[2021-04-15 07:07] VITALS: BP 142/67
[2021-04-15] MEDS ORDERED: IBUPROFEN 600 MG TABLET PO STA (08:07)
--- NOTE | 2021-04-15 08:57 | ED Physician Documentation ---
ED Addendum - Addendum Addendum: 04/15/21 08:56 Patient endorsed to me by nighttime Dr. Momin. She will be going to inpatient substance and mental health treatment in [place]. Impression 1 schizophrenia 2 Substance abuse
== END 2021-04-15 09:12 | disposition home or self-care (01) ==
LOC: EDUNIT# → ED 17:57
DX: F39 Unspecified mood [affective] disorder (principal); F17.200 Nicotine dependence, unspecified, uncomplicated; Z20.822 Contact with and (suspected) exposure to COVID-19
CPT/HCPCS: 0202U; 36415; 80053; 80306; 80307; 80320; 80329; 81001; 81025; 83690; 84443; 85025; 99284; 99285; A9270; J8499; 81003; 87086

== ENCOUNTER 2021-05-04 20:42 | Emergency (ER) | payer MEDICAID ==
[2021-05-04 20:48] VITALS: BP 118/76
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
== END 2021-05-04 21:22 | disposition home or self-care (01) ==
LOC: ED 20:42
DX: Z02.79 Encounter for issue of other medical certificate (principal); F41.9 Anxiety disorder, unspecified; G47.00 Insomnia, unspecified; F17.200 Nicotine dependence, unspecified, uncomplicated
CPT/HCPCS: 99281

== ENCOUNTER 2021-05-17 18:22 | Outpatient (CLI) | payer MEDICAID | END 2021-05-17 18:23 | disposition critical access hospital (66) | LOC: EMS 18:22 | DX: Z04.1 Encounter for examination and observation following transport accident (principal); M25.532 Pain in left wrist | CPT/HCPCS: A0425; A0429; A0999 ==

== ENCOUNTER 2021-05-17 18:49 | Emergency (ER) | payer MEDICAID ==
[2021-05-17 19:07] VITALS: BP 131/80
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
[2021-05-17] MEDS ORDERED: LORazepam 1 MG TABLET PO STA (19:53)
== END 2021-05-17 20:40 | disposition home or self-care (01) ==
LOC: EDUNIT# → ED 18:49
DX: M25.532 Pain in left wrist (principal); F17.200 Nicotine dependence, unspecified, uncomplicated
CPT/HCPCS: 73110; 99283; 99284; J8499; 80053; 80307; 80320; 80329; 83690; 84443; 85025

== ENCOUNTER 2021-05-18 14:34 | Emergency (ER) | payer MEDICAID | END 2021-05-18 14:55 | disposition left against medical advice (07) | LOC: ED 14:34 | DX: Z53.21 Procedure and treatment not carried out due to patient leaving prior to being seen by health care provider (principal) ==

== ENCOUNTER 2021-06-03 15:48 | Emergency (ER) | payer MEDICAID ==
[2021-06-03] MEDS ORDERED: LORazepam 2 MG/ML VIAL IM STA (16:14)
--- NOTE | 2021-06-03 16:17 | ED Physician Documentation ---
PD HPI MHE - Stated complaint Stated Complaint: MHE - Chief complaint Chief Complaint: MHE - Additional information Additional information: 30-year-old woman with history of schizophrenia presents in appearance panic attack and potential mental health crisis. Reportedly brought in by mom. She is not really talking to me as she is hyperventilating with poor eye contact. So history is limited. 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 - Present Medications Home Medications: Ambulatory Orders Medication Instructions Recorded Confirmed No Known Home Medications 04/15/21 05/04/21 - Allergies Allergies/Adverse Reactions: Allergies Allergy/AdvReac Type Severity Reaction Status Date / Time divalproex sodium Allergy Unknown Verified 06/03/21 15:53 [From Depakote] sertraline HCl * Allergy Unknown Verified 06/03/21 15:53 [From Zoloft] - Social History Does the pt smoke?: Yes Smoking Status: Current every day smoker Does the pt drink ETOH?: No Does the pt have substance abuse?: No - Immunizations Immunizations are current?: No - POLST Patient has POLST: No PD ED PE NORMAL - Vitals Vital signs reviewed: Yes - General General: Other (Panicky, picking at herself, will answer her name but otherwise really is not answering questions.) - HEENT HEENT: PERRL, EOMI - Neck Neck: Supple, no meningeal sign, No bony TTP - Cardiac Cardiac: RRR, No murmur - Respiratory Respiratory: No respiratory distress, Clear bilaterally - Abdomen Abdomen: Soft, Non tender - Back Back: No CVA TTP, No spinal TTP - Derm Derm: Normal color, Warm and dry - Extremities Extremities: No edema, No calf tenderness / cord - Psych Psych: Other (Poor eye contact, hyperventilating, she is picking at scabs on her skin and is poorly redirectable.) Results - Vitals Vitals: Vital Signs - 24 hr 06/03/21 15:53 Temperature 36.9 C Heart Rate 94 Respiratory 20 Rate Blood Pressure 123/82 H O2 Saturation 98 Oxygen O2 Source Room air - Labs Labs: Laboratory Tests 06/03/21 06/03/21 06/03/21 16:28 16:37 16:37 WBC 9.9 RBC 3.89 L Hgb 11.3 L Hct 34.8 L MCV 89.5 MCH 29.0 MCHC 32.5 RDW 15.9 H Plt Count 230 MPV 9.5 Neut # (Auto) 6.7 H Lymph # (Auto) 2.4 Orange # (Auto) 0.7 Eos # (Auto) 0.1 Baso # (Auto) 0.0 Absolute Nucleated RBC 0.00 Nucleated RBC % 0.0 Sodium 143 Potassium 3.7 Chloride 106 Carbon Dioxide 27 Anion Gap 10.0 BUN 17 Creatinine 0.8 Estimated GFR (MDRD) 85 L Glucose 105 H Calcium 9.4 Total Bilirubin 0.7 AST 23 ALT 20 Alkaline Phosphatase 48 Total Protein 6.8 Albumin 4.1 Globulin 2.7 Albumin/Globulin Ratio 1.5 Lipase 41 TSH Urine Color Urine Clarity Urine pH Ur Specific [place] Urine Protein Urine Glucose (UA) Urine Ketones Urine Occult Blood Urine Nitrite Urine Bilirubin Urine Urobilinogen Ur Leukocyte Esterase Ur Microscopic Review Urine Culture Comments Urine HCG, Qual Nasal Adenovirus (PCR) NOT DETECTED Nasal B. parapertussis DNA (PCR) NOT DETECTED Nasal Coronavir 229E PCR NOT DETECTED Nasal Coronavir HKU1 PCR NOT DETECTED Nasal Coronavir NL63 PCR NOT DETECTED Nasal Coronavir OC43 PCR NOT DETECTED Nasal Enterovir/Rhinovir PCR NOT DETECTED Nasal Influenza B PCR NOT DETECTED Nasal Influenza A PCR NOT DETECTED Nasal Parainfluen 1 PCR NOT DETECTED Nasal Parainfluen 2 PCR NOT DETECTED Nasal Parainfluen 3 PCR NOT DETECTED Nasal Parainfluen 4 PCR NOT DETECTED Nasal RSV (PCR) NOT DETECTED Nasal B.pertussis DNA PCR NOT DETECTED Nasal C.pneumoniae (PCR) NOT DETECTED Demarcus Human Metapneumo PCR NOT DETECTED Nasal M.pneumoniae (PCR) NOT DETECTED Nasal SARS-CoV-2 (PCR) NOT DETECTED Salicylates < 6.0 Urine Opiates Screen Ur Oxycodone Screen Urine Methadone Screen Ur Propoxyphene Screen Acetaminophen < 10 L Ur Barbiturates Screen Ur Tricyclics Screen Ur Phencyclidine Scrn Ur Amphetamine Screen U Methamphetamines Scrn U Benzodiazepines Scrn Urine Cocaine Screen U Cannabinoids Screen Ethyl Alcohol < 5.0 06/03/21 06/03/21 16:37 16:40 WBC RBC Hgb Hct MCV MCH MCHC RDW Plt Count MPV Neut # (Auto) Lymph # (Auto) Orange # (Auto) Eos # (Auto) Baso # (Auto) Absolute Nucleated RBC Nucleated RBC % Sodium Potassium Chloride Carbon Dioxide Anion Gap BUN Creatinine Estimated GFR (MDRD) Glucose Calcium Total Bilirubin AST ALT Alkaline Phosphatase Total Protein Albumin Globulin Albumin/Globulin Ratio Lipase TSH 1.04 Urine Color YELLOW Urine Clarity CLEAR Urine pH 6.0 Ur Specific [place] 1.025 Urine Protein NEGATIVE Urine Glucose (UA) NEGATIVE Urine Ketones NEGATIVE Urine Occult Blood NEGATIVE Urine Nitrite NEGATIVE Urine Bilirubin NEGATIVE Urine Urobilinogen 0.2 (NORMAL) Ur Leukocyte Esterase NEGATIVE Ur Microscopic Review NOT INDICATED Urine Culture Comments NOT INDICATED Urine HCG, Qual NEGATIVE Nasal Adenovirus (PCR) Nasal B. parapertussis DNA (PCR) Nasal Coronavir 229E PCR Nasal Coronavir HKU1 PCR Nasal Coronavir NL63 PCR Nasal Coronavir OC43 PCR Nasal Enterovir/Rhinovir PCR Nasal Influenza B PCR Nasal Influenza A PCR Nasal Parainfluen 1 PCR Nasal Parainfluen 2 PCR Nasal Parainfluen 3 PCR Nasal Parainfluen 4 PCR Nasal RSV (PCR) Nasal B.pertussis DNA PCR Nasal C.pneumoniae (PCR) Demarcus Human Metapneumo PCR Nasal M.pneumoniae (PCR) Nasal SARS-CoV-2 (PCR) Salicylates Urine Opiates Screen NEGATIVE Ur Oxycodone Screen NEGATIVE Urine Methadone Screen NEGATIVE Ur Propoxyphene Screen NEGATIVE Acetaminophen Ur Barbiturates Screen NEGATIVE Ur Tricyclics Screen NEGATIVE Ur Phencyclidine Scrn NEGATIVE Ur Amphetamine Screen NEGATIVE U Methamphetamines Scrn NEGATIVE U Benzodiazepines Scrn NEGATIVE Urine Cocaine Screen NEGATIVE U Cannabinoids Screen NEGATIVE Ethyl Alcohol PD MEDICAL DECISION MAKING - ED course ED course: 30-year-old woman presents with a severe panic attack related to underlying psychiatric illness. She was calm her after IM Ativan. She was agreeable to psychiatric hospitalization and was subsequently accepted by Dr. Trujillo to [facility] for further evaluation and treatment. Orders are completed. She is stable for transport. Departure - Departure Disposition: 65 Psych Hosp/Unit DC/Xfer Clinical Impression: Post traumatic stress disorder (PTSD), Anxiety Condition: Stable Record reviewed to determine appropriate education?: Yes
[2021-06-03 16:46] LABS: BASOPHILS % (AUTO) 0.3 %; EOSINOPHILS # (AUTO) 0.1 10^3/uL (0.0-0.7); EOSINOPHILS % (AUTO) 1.3 %; HCT - HEMATOCRIT 34.8 % (37.0-47.0); HGB - HEMOGLOBIN 11.3 g/dL (12.0-16.0); LYMPHOCYTES # (AUTO) 2.4 10^3/uL (1.5-3.5); LYMPHOCYTES % (AUTO) 23.7 %; MEAN CORPUSCULAR HGB CONC 32.5 g/dL (32.0-36.0); MEAN CORPUSCULAR VOLUME 89.5 fL (81.0-99.0); MEAN PLATELET VOLUME 9.5 fL (7.9-10.8); MONOCYTES # (AUTO) 0.7 10^3/uL (0.0-1.0); MONOCYTES % (AUTO) 6.8 %; NEUTROPHILS # (AUTO) 6.7 10^3/uL (1.5-6.6); NEUTROPHILS % (AUTO) 67.6 %; PLT - PLATELET COUNT 230 10^3/uL (130-450); RED BLOOD COUNT 3.89 10^6/uL (4.20-5.40); RED CELL DISTRIBUTION WIDTH 15.9 % (12.0-15.0); WHITE BLOOD COUNT 9.9 x10^3/uL (4.8-10.8)
[2021-06-03 16:58] LABS: ACETAMINOPHEN < 10 ug/mL (10-30); ALBUMIN 4.1 g/dL (3.2-5.5); ALBUMIN/GLOBULIN RATIO 1.5 (1.0-2.2); ALKALINE PHOSPHATASE 48 IU/L (42-121); ALT ALANINE AMINOTRANSFERASE 20 IU/L (10-60); AST ASPARTATE AMINOTRANSFERASE 23 IU/L (10-42); BILIRUBIN,TOTAL 0.7 mg/dL (0.2-1.0); BUN - BLOOD UREA NITROGEN 17 mg/dL (6-20); CALCIUM 9.4 mg/dL (8.5-10.3); CARBON DIOXIDE - CO2 27 mmol/L (21-32); CHLORIDE 106 mmol/L (101-111); CREATININE 0.8 mg/dL (0.4-1.0); ETOH - ETHANOL < 5.0 mg/dL; GFR - MDRD 85 (>89); GLUCOSE 105 mg/dL (70-100); LIPASE 41 U/L (22-51); POTASSIUM 3.7 mmol/L (3.5-5.0); SALICYLATE < 6.0 mg/dL; SODIUM 143 mmol/L (135-145); TOTAL PROTEIN 6.8 g/dL (6.7-8.2)
[2021-06-03 17:06] LABS: MUDS CUTOFF CONCENTRATIONS CUTOFF CONC BELOW:
[2021-06-03 17:14] LABS: BILIRUBIN,URINE NEGATIVE (NEGATIVE); GLUCOSE, URINE (UA) NEGATIVE (NEGATIVE); KETONES,URINE (UA) NEGATIVE (NEGATIVE); LEUKOCYTE ESTERASE, URINE NEGATIVE (NEGATIVE); NITRITE,URINE NEGATIVE (NEGATIVE); OCCULT BLOOD,URINE NEGATIVE (NEGATIVE); PROTEIN,URINE NEGATIVE (NEGATIVE); UROBILINOGEN,URINE 0.2 (NORMAL) E.U./dL (NORMAL)
[2021-06-03 17:18] LABS: CLARITY,URINE CLEAR (CLEAR); HCG UR QUAL NEGATIVE
[2021-06-03 17:29] LABS: AMPHETAMINE SCREEN,URINE NEGATIVE (NEGATIVE); BARBITURATE SCREEN,UR NEGATIVE (NEGATIVE); BENZODIAZEPINES SCREEN, URINE NEGATIVE (NEGATIVE); COCAINE SCREEN URINE NEGATIVE (NEGATIVE); METHADONE SCREEN, URINE NEGATIVE (NEGATIVE); METHAMPHETAMINES SCREEN, URINE NEGATIVE (NEGATIVE); OPIATE SCREEN, URINE NEGATIVE (NEGATIVE); OXYCODONE SCREEN, URINE NEGATIVE (NEGATIVE); PROPOXYPHENE SCREEN, URINE NEGATIVE (NEGATIVE); THC CANNABINOID SCREEN, URINE NEGATIVE (NEGATIVE); TRICYCLIC ANTIDEPRESSANT,URINE NEGATIVE (NEGATIVE)
[2021-06-03 17:51] LABS: B. PARAPERTUSSIS- RESP PCR PAN NOT DETECTED; B. PERTUSSIS- RESP PCR PANEL NOT DETECTED; C. PNEUMONIAE- RESP PCR PANEL NOT DETECTED; CORONAVIRUS 229E-RESP PCR NOT DETECTED; CORONAVIRUS HKU1-RESP PCR NOT DETECTED; CORONAVIRUS NL63-RESP PCR NOT DETECTED; CORONAVIRUS OC43-RESP PCR NOT DETECTED; HUMAN METAPNEUMOVIRUS NOT DETECTED; INFLUENZA A- RESP PCR PANEL NOT DETECTED; INFLUENZA B - RESP PCR PANEL NOT DETECTED; M. PNEUMONIAE- RESP PCR PANEL NOT DETECTED; PARAINFLUENZA VIRUS 1 NOT DETECTED; PARAINFLUENZA VIRUS 2 NOT DETECTED; PARAINFLUENZA VIRUS 3 NOT DETECTED; PARAINFLUENZA VIRUS 4 NOT DETECTED; RHINOVIRUS/ENTEROVIRUS NOT DETECTED; RSV- RESP PCR PANEL NOT DETECTED; SARS-CoV-2 -RESP PCR PANEL NOT DETECTED
[2021-06-03 21:47] VITALS: BP 108/67
== END 2021-06-03 22:30 ==
LOC: ED 15:48
DX: F43.10 Post-traumatic stress disorder, unspecified (principal); F41.9 Anxiety disorder, unspecified; F20.9 Schizophrenia, unspecified; F17.200 Nicotine dependence, unspecified, uncomplicated; Z20.822 Contact with and (suspected) exposure to COVID-19
CPT/HCPCS: 0202U; 36415; 80053; 80306; 80307; 80320; 80329; 81003; 81025; 83690; 84443; 85025; 96372; 99285; J2060; 81001; 87086

== ENCOUNTER 2022-11-28 07:51 | Emergency (ER) | payer MEDICAID ==
[2022-11-28] MEDS ORDERED: ACETAMINOPHEN 325 MG TABLET PO STA (09:14)
[2022-11-28] MEDS ORDERED: IBUPROFEN 600 MG TABLET PO STA (09:14)
--- NOTE | 2022-11-28 09:14 | ED Physician Documentation ---
PD HPI UPPER EXT INJURY - Stated complaint Stated Complaint: RT FINGER PX - Chief complaint Chief Complaint: Ext Problem - History obtained from History obtained from: Patient - History of Present Illness Location: Right, Finger Type of injury: Twist Where injury occurred: Home Timing - onset: Last night Timing - details: Abrupt onset, Still present Worsened by: Moving, Palpating Associated symptoms: Swelling, Discolored (some bruising at middle phalanxe.) Similar symptoms before: Has not had sx before Review of Systems Skin: denies: Abrasion (s), Laceration (s) Neurologic: denies: Focal weakness, Numbness PD PAST MEDICAL HISTORY - Past Medical History Respiratory: Asthma Psych: Depression, Anxiety, Schizophrenia - Past Surgical History 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 - Present Medications Home Medications: Ambulatory Orders Medication Instructions Recorded Confirmed No Known Home Medications 04/15/21 11/28/22 - Allergies Allergies/Adverse Reactions: Allergies Allergy/AdvReac Type Severity Reaction Status Date / Time aripiprazole [From Abilify] Allergy Unknown Verified 11/28/22 08:11 divalproex sodium Allergy Unknown Verified 06/03/21 15:53 [From Depakote] quetiapine [From Seroquel] Allergy Unknown Verified 11/28/22 08:11 sertraline HCl * Allergy Unknown Verified 06/03/21 15:53 [From Zoloft] Glucose testing Allergy Unknown Uncoded 11/28/22 08:11 - Social History Does the pt smoke?: Yes Smoking Status: Current every day smoker Does the pt drink ETOH?: No Does the pt have substance abuse?: No - Immunizations Immunizations are current?: No - POLST Patient has POLST: No PD ED PE NORMAL - Vitals Vital signs reviewed: Yes - General General: Alert and oriented X 3, Well developed/nourished - Derm Derm: Normal color, Warm and dry - Extremities Extremities: Other (right ring finger middle phalanx with swelling, tenderness, and early ecchymosis. no lacerations. able to slightly flex and extend at the ip joints. ) - Neuro Neuro: No motor deficit, No sensory deficit, Other (good cap refill at tip of finger. ) Results - Vitals Vitals: Oxygen O2 Source Room air - Rads (name of study) right fingers Radiology: Prelim report reviewed, EMP read indepedently (nonangulated middle phalanx shaft fracture ring finger. ), See rad report PD Medical Decision Making - ED course Complexity details: reviewed results, considered differential (finger splint applied by nursing, taped. ), d/w patient Departure - Departure Disposition: 01 Home, Self Care Clinical Impression: Fracture of phalanx of ring finger Qualifiers: Encounter type: initial encounter Fracture type: closed Phalanx: middle Fracture alignment: nondisplaced Laterality: right Qualified Code(s): S62.654A - Nondisplaced fracture of middle phalanx of right ring finger, initial encounter for closed fracture Condition: Stable Record reviewed to determine appropriate education?: Yes Instructions: ED Fx Finger Closed Follow-Up: [facility] [Provider Group] Comments: Keep the finger splinted to decrease motion and help with pain. This will also help reduce swelling. Elevate and cool towels or ice periodically to help swelling over the next few days as well. The initial decrease in pain will come with the decreased swelling over the first few days. After that it will improve again at about a week and 1/2 to 2 weeks as the bone solids up enough to stop movement. He will be a good 4 to 6 weeks for full healing. He will be good to evaluate it along the way while its healing to ensure its healing properly. Follow-up with orthopedics in about 2 weeks, call later today for an appointment. Tylenol ibuprofen if needed for pains. I would suggest ibuprofen 2-3 times daily regularly for the next several days to week and add Tylenol every 4-6 hours if needed for pain. Discharge Date/Time: 11/28/22 09:25
--- NOTE | 2022-11-28 09:24 | XRAY Report ---
PROCEDURE: Finger(s) RT INDICATIONS: Trauma TECHNIQUE: AP hand, 3 views of the fourth finger(s) acquired. COMPARISON: None FINDINGS: Bones: There is a comminuted fracture with mild displacement within the mid fourth proximal phalanx. No definitive intra-articular extension. No suspicious bony lesions. Soft tissues: No suspicious soft tissue calcifications. IMPRESSION: Comminuted mid proximal fourth phalanx fracture. Reviewed by: Erika Cartagena MD on 11/28/2022 9:23 AM [facility] Approved by: Erika Cartagena MD on 11/28/2022 9:23 AM [facility] Station ID: [id number]
[2022-11-28 09:27] VITALS: BP 118/77
== END 2022-11-28 09:25 | disposition home or self-care (01) ==
LOC: ED 07:51
DX: S62.654A Nondisplaced fracture of middle phalanx of right ring finger, initial encounter for closed fracture (principal); X50.1XXA Overexertion from prolonged static or awkward postures, initial encounter; Y92.9 Unspecified place or not applicable; F17.200 Nicotine dependence, unspecified, uncomplicated
CPT/HCPCS: 73140; 99283; A9270

== ENCOUNTER 2023-01-14 15:13 | Outpatient (CLI) | payer MEDICAID | END 2023-01-14 15:14 | disposition critical access hospital (66) | LOC: EMS 15:13 | DX: Z04.6 Encounter for general psychiatric examination, requested by authority (principal) | CPT/HCPCS: A0425; A0429; A0999 ==

== ENCOUNTER 2023-01-14 15:25 | Emergency (ER) | payer MEDICAID ==
--- NOTE | 2023-01-14 15:30 | ED Physician Documentation ---
History of Present Illness - Stated complaint Stated Complaint: MHE - History obtained from History obtained from: Patient, EMS - Additonal information Additional information: 32-year-old woman brought in from senior living for DCR evaluation/GUCCI. Reportedly has been in senior living for about a month. Per the patient she has not been getting any medications there. They tried to get a hold of the DCR to see her in senior living and there was some sort of technical issue preventing the DCR from evaluating her at senior living, so she was sent to the hospital. 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 - Present Medications Home Medications: Ambulatory Orders Medication Instructions Recorded Confirmed No Known Home Medications 04/15/21 11/28/22 - Allergies Allergies/Adverse Reactions: Allergies Allergy/AdvReac Type Severity Reaction Status Date / Time aripiprazole [From Abilify] Allergy Unknown Verified 01/14/23 15:34 divalproex sodium Allergy Unknown Verified 01/14/23 15:34 [From Depakote] quetiapine [From Seroquel] Allergy Unknown Verified 01/14/23 15:34 sertraline HCl * Allergy Unknown Verified 01/14/23 15:34 [From Zoloft] Glucose testing Allergy Unknown Uncoded 01/14/23 15:34 - Social History Does the pt smoke?: Yes Smoking Status: Current every day smoker Does the pt drink ETOH?: No Does the pt have substance abuse?: No - Immunizations Immunizations are current?: No - POLST Patient has POLST: No PD ED PE NORMAL - Vitals Vital signs reviewed: Yes - General General: Other (She is wearing senior living garb) - HEENT HEENT: PERRL, EOMI - Neck Neck: Supple, no meningeal sign, No bony TTP - Respiratory Respiratory: No respiratory distress - Abdomen Abdomen: Non tender - Extremities Extremities: No edema, No calf tenderness / cord - Psych Psych: Other (Pressured speech, uncooperative) Results - Vitals Vitals: Vital Signs - 24 hr 01/14/23 01/14/23 01/14/23 15:29 16:05 16:20 Temperature 36.6 C Heart Rate 99 122 H 96 Respiratory 18 24 20 Rate Blood Pressure 146/81 H 191/113 H 170/109 H O2 Saturation 99 95 96 01/14/23 01/14/23 01/14/23 16:35 16:50 17:20 Temperature Heart Rate 94 70 84 Respiratory 18 19 19 Rate Blood Pressure 174/95 H 168/110 H 177/97 H O2 Saturation 100 97 98 01/14/23 01/14/23 01/14/23 17:50 19:59 20:10 Temperature Heart Rate 69 76 98 Respiratory 17 22 16 Rate Blood Pressure 153/83 H 166/70 H 173/98 H O2 Saturation 99 98 100 01/14/23 01/14/23 01/14/23 20:24 20:37 20:39 Temperature Heart Rate 72 71 78 Respiratory 18 16 16 Rate Blood Pressure 144/96 H 138/96 H 138/96 H O2 Saturation 98 99 100 01/14/23 01/14/23 01/14/23 21:01 21:06 21:29 Temperature Heart Rate 71 63 77 Respiratory 18 16 20 Rate Blood Pressure 132/82 H 121/83 H 122/75 O2 Saturation 99 99 99 01/14/23 01/14/23 01/14/23 21:40 22:10 22:18 Temperature 74 C H Heart Rate 63 61 69 Respiratory 20 20 26 H Rate Blood Pressure 135/83 H 127/84 H 127/84 H O2 Saturation 99 97 100 Oxygen O2 Source Room air - EKG (time done) 1607 EKG releavant findings:: EKG personally interpreted by author of this note. Relevant findings are: Rate: Rate (enter#) (103) Rhythm: Sinus tachycardia University: Normal Intervals: Normal [place] QRS: Normal Ischemia: Normal ST segments - Labs Labs: Laboratory Tests 01/14/23 01/14/23 01/14/23 16:00 16:00 16:02 WBC 11.1 H RBC 4.41 Hgb 13.0 Hct 39.6 MCV 89.8 MCH 29.5 MCHC 32.8 RDW 12.7 Plt Count 211 MPV 10.5 Neut # (Auto) 7.4 H Lymph # (Auto) 2.7 Marin # (Auto) 0.8 Eos # (Auto) 0.1 Baso # (Auto) 0.1 Absolute Nucleated RBC 0.00 Nucleated RBC % 0.0 Sodium Potassium Chloride Carbon Dioxide Anion Gap BUN Creatinine Estimated GFR (MDRD) Glucose Calcium Magnesium Total Bilirubin AST ALT Alkaline Phosphatase Total Creatine Kinase Total Protein Albumin Globulin Albumin/Globulin Ratio Lipase TSH Urine Color YELLOW Urine Clarity HAZY Urine pH 7.5 Ur Specific Mongo 1.015 Urine Protein NEGATIVE Urine Glucose (UA) NEGATIVE Urine Ketones NEGATIVE Urine Occult Blood NEGATIVE Urine Nitrite NEGATIVE Urine Bilirubin NEGATIVE Urine Urobilinogen 0.2 (NORMAL) Ur Leukocyte Esterase NEGATIVE Urine RBC None Seen Urine WBC 0-3 Ur Squamous Epith Cells MANY Squamous H Amorphous Sediment Moderate Urine Bacteria Rare Ur Microscopic Review INDICATED Urine Culture Comments NOT INDICATED Urine HCG, Qual NEGATIVE Salicylates Urine Opiates Screen NEGATIVE Ur Oxycodone Screen NEGATIVE Urine Methadone Screen NEGATIVE Ur Propoxyphene Screen NEGATIVE Acetaminophen Ur Barbiturates Screen NEGATIVE Ur Tricyclics Screen NEGATIVE Ur Phencyclidine Scrn NEGATIVE Ur Amphetamine Screen NEGATIVE U Methamphetamines Scrn NEGATIVE U Benzodiazepines Scrn NEGATIVE Urine Cocaine Screen NEGATIVE U Cannabinoids Screen NEGATIVE Ethyl Alcohol SARS-CoV-2 (PCR) NOT DETECTED 01/14/23 01/14/23 16:02 16:02 WBC RBC Hgb Hct MCV MCH MCHC RDW Plt Count MPV Neut # (Auto) Lymph # (Auto) Marin # (Auto) Eos # (Auto) Baso # (Auto) Absolute Nucleated RBC Nucleated RBC % Sodium 139 Potassium 3.2 L Chloride 107 Carbon Dioxide 20 L Anion Gap 12.0 BUN 13 Creatinine 0.7 Estimated GFR (MDRD) 98 Glucose 117 H Calcium 8.8 Magnesium 1.8 Total Bilirubin 0.5 AST 27 ALT 17 Alkaline Phosphatase 60 Total Creatine Kinase 132 Total Protein 7.1 Albumin 4.0 Globulin 3.1 Albumin/Globulin Ratio 1.3 Lipase 44 TSH 1.66 Urine Color Urine Clarity Urine pH Ur Specific Mongo Urine Protein Urine Glucose (UA) Urine Ketones Urine Occult Blood Urine Nitrite Urine Bilirubin Urine Urobilinogen Ur Leukocyte Esterase Urine RBC Urine WBC Ur Squamous Epith Cells Amorphous Sediment Urine Bacteria Ur Microscopic Review Urine Culture Comments Urine HCG, Qual Salicylates < 6.0 Urine Opiates Screen Ur Oxycodone Screen Urine Methadone Screen Ur Propoxyphene Screen Acetaminophen < 10 L Ur Barbiturates Screen Ur Tricyclics Screen Ur Phencyclidine Scrn Ur Amphetamine Screen U Methamphetamines Scrn U Benzodiazepines Scrn Urine Cocaine Screen U Cannabinoids Screen Ethyl Alcohol < 5.0 SARS-CoV-2 (PCR) PD Medical Decision Making - ED course ED course: 32-year-old woman presents psychotic from senior living and on a GUCCI from the [facility]. She is medically clear for psychiatric evaluation but did require sedation And restraint for patient and staff safety in the department here. This required repeat, she was seen by the DCR and they are planning to detain. Care to overnight emergency physician at 11 PM shift change pending hopeful disposition by DCR. Departure - Departure Clinical Impression: Psychosis
[2023-01-14] MEDS ORDERED: OLANZapine 10 MG VIAL IM ONE (15:34)
[2023-01-14] MEDS ORDERED: KETAMINE 500 MG/10 ML VIAL IM STA ×2 (15:34→19:38)
--- NOTE | 2023-01-14 15:37 | ED Physician Documentation ---
Restraint [id number] - Immediate Situation Face to Face Evaluation Date: 01/14/23 Face to Face Evaluation Time: 15:36 Restraint Classification: Violent, chemical w/ physical hold Restraint Type: Chemical, Seclusion - Patient's Reaction & Behaviors Safety: Unable to Follow Commands Verbal: Demanding, Screaming/Yelling, Swearing Harm: Potential harm to others, Verbalizes intent to harm Physical: Beating on the door/wall Other: Disruption of therapy - Behavioral Condition Attitude: Indifferent Behavior: Belligerent, Agitated Orientation: Person, Place, Time Mood: Labile, Angry - Evaluation Review of Systems: Uncooperative Pertinent History/Illicit Drugs/Medications/Results: History of psychiatric disease. Does not seem that in the past substance use has been the issue and she has been in correction for several weeks or so. - Plan Need to Continue or Terminate Violent or Chemical Restraint: Shortly after initial arrival she became very agitated, screaming, we could not verbally de-escalate her. She was placed in the seclusion room which ramped her up even more. This [id number] is for both violent and chemical restraint which were instituted simultaneously.
--- NOTE | 2023-01-14 15:54 | ED Physician Documentation ---
Restraint [id number] - Immediate Situation Face to Face Evaluation Date: 01/14/23 Face to Face Evaluation Time: 15:53 Restraint Classification: Violent, physical Restraint Type: Locked extremity - Patient's Reaction & Behaviors Safety: Non-compliant, Unable to Follow Commands Verbal: Screaming/Yelling, Swearing Harm: Potential harm to others Physical: Aggressive behavior, Fighting restraints Other: Disruption of therapy - Behavioral Condition Attitude: Indifferent Behavior: Belligerent, Agitated Orientation: Non-responsive Mood: Labile, Angry, Anxious - Evaluation Review of Systems: Uncooperative Pertinent History/Illicit Drugs/Medications/Results: History of psychiatric disease. Does not seem that in the past substance use has been the issue and she has been in custodial for several weeks or so. - Plan Need to Continue or Terminate Violent or Chemical Restraint: Even after the previously given chemical restraint and being in seclusion she was fighting quite a bit, we also noted that we would need to more closely monitor her from a cardiovascular status after the administration of ketamine and Zyprexa. As such she is physically restrained and moved out of the seclusion room for better line of sight and cardiac monitoring.
[2023-01-14 16:20] LABS: MUDS CUTOFF CONCENTRATIONS CUTOFF CONC BELOW:
[2023-01-14 16:22] LABS: BILIRUBIN,URINE NEGATIVE (NEGATIVE); GLUCOSE, URINE (UA) NEGATIVE (NEGATIVE); KETONES,URINE (UA) NEGATIVE (NEGATIVE); LEUKOCYTE ESTERASE, URINE NEGATIVE (NEGATIVE); NITRITE,URINE NEGATIVE (NEGATIVE); OCCULT BLOOD,URINE NEGATIVE (NEGATIVE); PH,URINE 7.5 PH (5.0-7.5); PROTEIN,URINE NEGATIVE (NEGATIVE); UROBILINOGEN,URINE 0.2 (NORMAL) E.U./dL (NORMAL)
[2023-01-14 16:25] LABS: BASOPHILS # (AUTO) 0.1 10^3/uL (0.0-0.1); BASOPHILS % (AUTO) 0.6 %; EOSINOPHILS # (AUTO) 0.1 10^3/uL (0.0-0.7); EOSINOPHILS % (AUTO) 1.3 %; HCT - HEMATOCRIT 39.6 % (37.0-47.0); LYMPHOCYTES # (AUTO) 2.7 10^3/uL (1.5-3.5); LYMPHOCYTES % (AUTO) 24.5 %; MEAN CORPUSCULAR HEMOGLOBIN 29.5 pg (27.0-31.0); MEAN CORPUSCULAR HGB CONC 32.8 g/dL (32.0-36.0); MEAN CORPUSCULAR VOLUME 89.8 fL (81.0-99.0); MEAN PLATELET VOLUME 10.5 fL (7.9-10.8); MONOCYTES # (AUTO) 0.8 10^3/uL (0.0-1.0); MONOCYTES % (AUTO) 6.9 %; NEUTROPHILS # (AUTO) 7.4 10^3/uL (1.5-6.6); NEUTROPHILS % (AUTO) 66.3 %; PLT - PLATELET COUNT 211 10^3/uL (130-450); RED BLOOD COUNT 4.41 10^6/uL (4.20-5.40); RED CELL DISTRIBUTION WIDTH 12.7 % (12.0-15.0); WHITE BLOOD COUNT 11.1 x10^3/uL (4.8-10.8)
[2023-01-14 16:25] LABS: CLARITY,URINE HAZY (CLEAR); HCG UR QUAL NEGATIVE
[2023-01-14 16:28] LABS: AMORPHOUS SEDIMENT,UR Moderate /LPF; BACTERIA,URINE Rare /HPF (None Seen); RBC,URINE None Seen /HPF (0-5); SQUAMOUS EPITHELIAL CELL,UR MANY Squamous (<= Few); WBC,URINE 0-3 /HPF (0-5)
[2023-01-14 16:42] LABS: AMPHETAMINE SCREEN,URINE NEGATIVE (NEGATIVE); BARBITURATE SCREEN,UR NEGATIVE (NEGATIVE); BENZODIAZEPINES SCREEN, URINE NEGATIVE (NEGATIVE); COCAINE SCREEN URINE NEGATIVE (NEGATIVE); METHADONE SCREEN, URINE NEGATIVE (NEGATIVE); METHAMPHETAMINES SCREEN, URINE NEGATIVE (NEGATIVE); OPIATE SCREEN, URINE NEGATIVE (NEGATIVE); OXYCODONE SCREEN, URINE NEGATIVE (NEGATIVE); PROPOXYPHENE SCREEN, URINE NEGATIVE (NEGATIVE); THC CANNABINOID SCREEN, URINE NEGATIVE (NEGATIVE); TRICYCLIC ANTIDEPRESSANT,URINE NEGATIVE (NEGATIVE)
[2023-01-14 16:43] LABS: ACETAMINOPHEN < 10 ug/mL (10-30); ALBUMIN/GLOBULIN RATIO 1.3 (1.0-2.2); ALKALINE PHOSPHATASE 60 IU/L (42-121); ALT ALANINE AMINOTRANSFERASE 17 IU/L (10-60); AST ASPARTATE AMINOTRANSFERASE 27 IU/L (10-42); BILIRUBIN,TOTAL 0.5 mg/dL (0.2-1.0); BUN - BLOOD UREA NITROGEN 13 mg/dL (6-20); CALCIUM 8.8 mg/dL (8.5-10.3); CARBON DIOXIDE - CO2 20 mmol/L (21-32); CHLORIDE 107 mmol/L (101-111); CK- CREATINE KINASE 132 IU/L (22-269); CREATININE 0.7 mg/dL (0.4-1.0); ETOH - ETHANOL < 5.0 mg/dL; GFR - MDRD 98 (>89); GLUCOSE 117 mg/dL (70-100); LIPASE 44 U/L (22-51); MAGNESIUM 1.8 mg/dL (1.7-2.8); POTASSIUM 3.2 mmol/L (3.5-5.0); SALICYLATE < 6.0 mg/dL; SODIUM 139 mmol/L (135-145); TOTAL PROTEIN 7.1 g/dL (6.7-8.2)
[2023-01-14] MEDS ORDERED: HALOPERIDOL 5 MG/ML VIAL IM STA (19:38)
[2023-01-14] MEDS ORDERED: LORazepam 2 MG/ML VIAL IM STA (19:38)
--- NOTE | 2023-01-14 19:42 | ED Physician Documentation ---
Restraint [id number]-[id number] - Immediate Situation Face to Face Evaluation Date: 01/14/23 Face to Face Evaluation Time: 19:41 Restraint Classification: Violent, chemical Restraint Type: Chemical - Patient's Reaction & Behaviors Safety: Non-compliant Verbal: Demanding, Screaming/Yelling, Swearing Harm: Potential harm to others Physical: Aggressive behavior, Fighting restraints - Behavioral Condition Attitude: Indifferent Behavior: Belligerent, Agitated Orientation: Non-responsive (not cooperative) Mood: Angry - Evaluation Review of Systems: Uncooperative Pertinent History/Illicit Drugs/Medications/Results: History of psychiatric disease. Does not seem that in the past substance use has been the issue and she has been in senior living for several weeks or so. - Plan Need to Continue or Terminate Violent or Chemical Restraint: The previous chemical restraint has worn off. She is screaming and yelling. She continues to be in four-point restraints which I will renew shortly, but is requiring more chemical restraint now. We were holding off for a bit to let the DCR see her while not sedated and the DCR has been able to see the patient and is okay with us sedating her for patient and staff safety. We attempted verbal de-escalation which was unsuccessful.
--- NOTE | 2023-01-14 19:59 | ED Physician Documentation ---
Restraint Umgv-hu-Iaog - Immediate Situation Face to Face Evaluation Date: 01/14/23 Face to Face Evaluation Time: 19:58 Restraint Classification: Violent, physical Restraint Type: Locked extremity - Patient's Reaction & Behaviors Safety: Non-compliant, Unable to Follow Commands Verbal: Demanding, Screaming/Yelling, Swearing Harm: Potential harm to others Physical: Aggressive behavior, Fighting restraints - Behavioral Condition Attitude: Indifferent Behavior: Belligerent, Agitated Orientation: Non-responsive (uncooperative) Mood: Angry, Anxious - Evaluation Review of Systems: Uncooperative Pertinent History/Illicit Drugs/Medications/Results: History of psychiatric disease. Does not seem that in the past substance use has been the issue and she has been in shelter for several weeks or so. - Plan Need to Continue or Terminate Violent or Chemical Restraint: Renewal of necessary violent restraints, still screaming and yelling. Is being detained by the DCR, Barbara.
--- NOTE | 2023-01-15 00:43 | ED Physician Documentation ---
Restraint Ejgn-kj-[id number] - Immediate Situation Face to Face Evaluation Date: 01/15/23 Face to Face Evaluation Time: 00:00 Restraint Classification: Violent, physical Restraint Type: Locked extremity - Patient's Reaction & Behaviors Safety: Physically safe Harm: Potential harm to self, Potential harm to others Other: Resting quietly - Behavioral Condition Attitude: Indifferent Behavior: Withdrawn Orientation: Non-responsive Mood: Labile - Evaluation Review of Systems: Uncooperative Pertinent History/Illicit Drugs/Medications/Results: History of psychiatric disease. Does not seem that in the past substance use has been the issue and she has been in [facility] for several weeks or so. - Plan Need to Continue or Terminate Violent or Chemical Restraint: will d/c when safe to do so.
--- NOTE | 2023-01-15 00:45 | ED Physician Documentation ---
ED Addendum - Addendum Addendum: 01/15/23 00:44 Patient endorsed to me by Dr. Kaufman awaiting psych inpatient hospitalization. She now has a facility willing to take her at 10 AM. Patient flagged for disposition. Impression 1 psychosis Condition stable Dispositiontransfer to inpatient psychiatric care.
[2023-01-15 05:48] VITALS: BP 102/67
[2023-01-15] MEDS ORDERED: POTASSIUM CHLORIDE 20 MEQ/15 ML UDC PO ONE (08:00)
[2023-01-15] MEDS ORDERED: OLANZapine 10 MG VIAL IM STA (09:12)
[2023-01-15] MEDS ORDERED: OLANZapine 10 MG VIAL IM ONE (09:16)
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
== END 2023-01-15 09:34 ==
LOC: EDUNIT# → ED 15:25
DX: F29 Unspecified psychosis not due to a substance or known physiological condition (principal); F20.9 Schizophrenia, unspecified; F41.9 Anxiety disorder, unspecified; F17.200 Nicotine dependence, unspecified, uncomplicated; Z20.822 Contact with and (suspected) exposure to COVID-19
CPT/HCPCS: 36415; 80053; 80306; 80307; 80320; 80329; 81001; 81025; 82550; 83690; 83735; 84443; 85025; 87635; 93005; 96372; 99285; J2060; 81003; 87086